=== PATIENT | male | born 1950 ===

== ENCOUNTER 2016-11-08 06:40 | Inpatient (IN) | payer MEDICARE ==
--- NOTE | 2016-11-08 07:25 | ED PDOC ---
Syncope/Near Syncope/Dizziness Time Seen by Provider: 11/08/16 07:00 Chief Complaint (Nursing): Dizziness/Lightheaded Chief Complaint (Provider): Dizziness/Lightheaded History Per: Patient, Family (Daughter) History/Exam Limitations: no limitations Onset/Duration Of Symptoms: Days (x1 day) Current Symptoms Are (Timing): Still Present Additional Complaint(s): 66 y/o male with a past medical history of hypertension, borderline diabetes, and hepatitis C who presents to the emergency department accompanied by and daughter after feeling lightheadedness since this morning, 11/08/2016. Associated with a headache onset a few days ago and dizziness described as room- spinning. Patient reports she "does not feel good" and felt like close to syncope after brushing his teeth and getting ready this morning. As per history from daughter, patient began taking Harvoni medications for hepatitis C about 6 months ago and is concerned it is causing his symptoms because he had been extremely tired for the past couple of weeks. Denies experiencing similar episode in the past, fever, abdominal pain, cough, or shortness of breath. PMD: Dr. Etienne (From [place] where patient lives) NIHSS Stroke Scale - Date/Time Evaluation Performed Date Performed: 11/08/16 When Was NIHSS Performed: Baseline - How Severe is the Stroke Level of Consciousness: 0=Alert LOC to Questions: 0=Both comments correct LOC to commands: 0=Obeys both correctly Best Gaze: 0=Normal Visual: 0=No visual loss Facial: 0=Normal Motor Arm - Left: 0=No drift Motor Arm - Right: 0=No drift Motor Leg - Left: 0=No drift Motor Leg - Right: 0=No drift Limb Ataxia: 0=Absent Sensory: 0=Normal Best Language: 0=No aphasia Dysarthia: 0=Normal articulation Extinction & Inattention (Neglect): 0=Normal, no object Score: 0 Past Medical History Reviewed: Historical Data, Nursing Documentation, Vital Signs Vital Signs: Last Vital Signs Temp 96 F L 11/08/16 06:44 Pulse 71 11/08/16 06:44 Resp 18 11/08/16 06:44 BP 182/95 H 11/08/16 06:44 Pulse Ox 98 11/08/16 06:44 - Medical History PMH: Diabetes (Borderline), Hepatitis (C), HTN, Hyperlipidemia - Surgical History Surgical History: CABG (Quadruple bypass), Hernia Repair - Family History Family History: States: Unknown Family Hx - Living Arrangements Living Arrangements: With Family - Social History Current smoker - smoking cessation education provided: No Alcohol: None Drugs: Denies - Home Medications Home Medications: Ambulatory Orders Medication Instructions Recorded Escitalopram [Lexapro] 10 mg PO DAILY 11/08/16 Gabapentin [Neurontin] 300 mg PO TID 11/08/16 Ledipasvir/Sofosbuvir [Harvoni 1 tab PO DAILY 11/08/16 90-400 mg Tablet] Losartan/Hydrochlorothiazide 1 tab PO DAILY 11/08/16 [Hyzaar 100-25 Tablet] Metoprolol Tartrate [Lopressor] 50 mg PO BID 11/08/16 Temazepam [Restoril] 30 mg PO HS 11/08/16 amLODIPine [Norvasc] 10 mg PO DAILY 11/08/16 traMADol [Ultram] 50 mg PO BID PRN 11/08/16 Aspirin [Aspirin Chewable] 81 mg PO DAILY 11/13/16 Atorvastatin [Lipitor] 20 mg PO DAILY tab 11/13/16 Clopidogrel [Plavix] 75 mg PO DAILY tab 11/13/16 Losartan [Cozaar] 50 mg PO DAILY tab 11/13/16 Meclizine [Meclizine*] 25 mg PO Q8@0200,1000,1800 tab 11/13/16 Metoprolol Tartrate [Lopressor] 12.5 mg PO Q12 tab 11/13/16 - Allergies Allergies/Adverse Reactions: Allergies Allergy/AdvReac Type Severity Reaction Status Date / Time No Known Allergies Allergy Verified 11/08/16 06:44 Review of Systems ROS Statement: Except As Marked, All Systems Reviewed And Found Negative Constitutional: Negative for: Fever Respiratory: Negative for: Cough, Shortness of Breath Gastrointestinal: Negative for: Abdominal Pain Neurological: Positive for: Headache, Dizziness (Room-spinning), Other ( Lightheadedness) Physical Exam - Reviewed Nursing Documentation Reviewed: Yes Vital Signs Reviewed: Yes - Physical Exam Appears: Positive for: Non-toxic, No Acute Distress Head Exam: Positive for: ATRAUMATIC, NORMAL INSPECTION, NORMOCEPHALIC Skin: Positive for: Normal Color, Warm, Dry Eye Exam: Positive for: Normal appearance, EOMI, PERRL ENT: Positive for: Normal ENT Inspection. Negative for: Pharyngeal Erythema Neck: Positive for: Normal, Supple Cardiovascular/Chest: Positive for: Regular Rate, Rhythm. Negative for: Murmur Respiratory: Positive for: Normal Breath Sounds. Negative for: Accessory Muscle Use, Respiratory Distress Gastrointestinal/Abdominal: Positive for: Soft, Tenderness (Diffuse tenderness of the abdomen) Extremity: Positive for: Normal ROM. Negative for: Pedal Edema Neurologic/Psych: Positive for: Alert, Oriented - Laboratory Results Result Diagrams: 11/13/16 04:10 11/13/16 04:10 - ECG ECG Rhythm: Positive for: Sinus Rhythm (Normal at 72 bpm), Left Bundle Branch Block O2 Sat by Pulse Oximetry: 98 (RA) Pulse Ox Interpretation: Normal Medical Decision Making Medical Decision Making: Time: 07:20 Initial impression: Lightheadedness/Dizziness Initial plan: --Abd & Pelvis w/o PO or IV contrast CT --Head w/o contrast --COMP Metabolic Panel --Troponin I Stat --CBC w/ differential --Chest Portable (RAD) --Antivert 25 mg PO --Ondansetron 4 mg IV --Blood Culture STAT --Urine Culture STAT --Urinalysis STAT --Blood Pressure: 193/97 --EKG: Normal Sinus Rhythm. Left bundle branch block at 72 bpm. --Reevaluation Time: 08:21 --Head CT FINDINGS: HEMORRHAGE: No intracranial hemorrhage. BRAIN: No mass effect or edema. Mild cerebral cortical atrophy VENTRICLES: Commensurate with the degree of atrophy and age No hydrocephalus. CALVARIUM: Unremarkable. PARANASAL SINUSES: . Unremarkable as visualized. No significant inflammatory changes. MASTOID AIR CELLS: Unremarkable as visualized. No inflammatory changes. OTHER FINDINGS: None. IMPRESSION: Mild cerebral atrophy. No intracranial hemorrhage or mass effect. Time: 08:24 --Chest x-ray FINDINGS: LUNGS: Pulmonary vascular minimal congestion -chronicity unknown. No dense consolidation PLEURA: Left inferolateral pleural thickening and/or pleural effusion. No pneumothorax apparent. CARDIOVASCULAR: Cardiomegaly and midline sternotomy wires OSSEOUS STRUCTURES: Thoracic spondylosis VISUALIZED UPPER ABDOMEN: Normal. OTHER FINDINGS: None. IMPRESSION: Cardiomegaly. Minimal pulmonary vascular congestion suspect -chronicity unknown. Status post midline sternotomy Left inferolateral pleural thickening with or without left pleural effusion - chronicity unknown Time: 09:00 --Repeat EKG --Troponin levels are normal. Time: 09:04 --Abdomen/Pelvis CT FINDINGS: LOWER THORAX: Coronary artery calcifications and sternotomy wires are noted. No pericardial effusion or pleural effusion seen LIVER: Unremarkable. No gross lesion or ductal dilatation. GALLBLADDER AND BILE DUCTS: Unremarkable. PANCREAS: Unremarkable. No gross lesion or ductal dilatation. 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 No mass. KIDNEYS AND URETERS: No hydronephrosis. A 1.4 cm right upper renal pole cortical hypodense mass with Hounsfield units consistent with a cyst is present. A similar with the tonsil unit that density any larger right lower renal pole 3.2 cm hypodense mass is suggested. The left kidney is ses slightly smaller VASCULATURE: Atherosclerotic vascular calcifications. No aortic aneurysm. BOWEL: A right colon is nearly come collapsed No obstruction. No gross mural thickening. APPENDIX: Unremarkable. Normal appendix. PERITONEUM: Unremarkable. No free fluid. No free air. LYMPH NODES: Unremarkable. No enlarged lymph nodes. BLADDER: Unremarkable. REPRODUCTIVE: Unremarkable. BONES: No acute fracture. OTHER FINDINGS: Anterior lower abdominal wall surgical changes are noted. At the mid abdomen nonspecific soft tissue changes in the anterior abdominal wall are present. No fluid collections or soft tissue mass is suggested. IMPRESSION: No bowel obstruction, diverticulitis or free air seen. Postop changes - splenectomy and low anterior abdominal wall. Right renal masses most consistent with renal cysts as above Time: 09:12 --Discussed results with daughter and . Order of antibiotics and potassium. --EKG: Normal sinus rhythm. Left Bundle Branch Block. Occasional PVCs at 66 bpm. Time: 09:30 --KCL 10MEQ/50ML Premixed --ZOSYN 4.5 GM IVPB --Pending call from Dr. Nye (Medicine cone trucker) Time: 10:37 --3rd call to Dr. Nye with no call back or answer. Time: 10:54 --Pending On-Call Dr. Damian Sanders who is covering for Dr. Nye. Time: 11:24 --Admit to hospital routine as inpatient to telemetry for presyncope, left bundle branch block, and hypokalemia under the care of Dr. Tommy Salgado. --Spoke to crane helper Dr. Lamberto Romero MD , he will consult for lbbb. Time: 12:50 --Pending for Neurologist on-call because patient continues to complain about a persistent headache. Time: 12:52 --Spoke to Neurology consult routine with Dr. Madhu Griffiths MD for persistent headaches who suggested the following: --CTA Head and Neck Bundle (CT) - results will be followed up by inpatient team as pt going up before the results are in. --Decadron INJ 10 mg --Magnesium Sulfate 2gm/100 mL --Reevaluation ordered all that and results will be followed up by Dr Salgado/Aye. pt agreeable to plan Scribe Attestation: Documented by Dorothea Jones, acting as a scribe for Bakari Núñez MD. Provider Scribe Attestation: All medical record entries made by the Scribe were at my direction and personally dictated by me. I have reviewed the chart and agree that the record accurately reflects my personal performance of the history, physical exam, medical decision making, and the department course for this patient. I have also personally directed, reviewed, and agree with the discharge instructions and disposition. Disposition - Clinical Impression Clinical Impression: Dizziness - Patient ED Disposition Is Patient to be Admitted: Yes Counseled Patient/Family Regarding: Studies Performed, Diagnosis - Disposition Disposition Time: 09:55 Condition: STABLE - Pt Status Changed To: Hospital Disposition Of: Inpatient - Admit Certification Admit to Inpatient:: After my assessment, the patient will require hospitalization for at least two midnights. This is because of the severity of symptoms shown, intensity of services needed, and/or the medical risk in this patient being treated as an outpatient.
[2016-11-08 08:08] LABS: BASO # 0.2 K/uL (0.0-0.2); BASO % 1.1 % (0.0-2.0); EOS # 0.4 K/uL (0.0-0.7); EOS % 2.5 % (0.0-4.0); HEMOGLOBIN 17.2 g/dL (12.0-18.0); LYMPH # 7.8 K/uL (1.0-4.3); LYMPH % 43.1 % (20.0-40.0); MEAN CELL VOLUME 90.7 fl (80.0-94.0); MEAN CORPUSCULAR HEMOGLOBIN 29.5 pg (27.0-31.0); MEAN CORPUSCULAR HGB CONC 32.6 g/dL (33.0-37.0); MEAN PLATELET VOLUME 9.4 fl (7.2-11.7); MONO # 1.7 K/uL (0.0-0.8); MONO % 9.4 % (0.0-10.0); NEUT % 43.9 % (50.0-75.0); NRBC % 0.2 % (0.0-0.0); RBC 5.81 Mil/uL (4.40-5.90); WHITE BLOOD COUNT 18.1 K/uL (4.8-10.8)
[2016-11-08 08:23] LABS: ALB/GLOB RATIO 1.1 (1.0-2.1); ALBUMIN 4.7 g/dL (3.5-5.0); ALT/SGPT 34 U/L (21-72); AST/SGOT 27 U/L (17-59); BLOOD UREA NITROGEN 31 mg/dl (9-20); CALCIUM 10.1 mg/dL (8.4-10.2); GFR AFRICAN-AMERICAN > 60; GFR NON-AFRICAN AMERICAN 55
--- NOTE | 2016-11-08 08:23 | CT ---
PROCEDURE: CT HEAD WITHOUT CONTRAST. HISTORY: dizziness COMPARISON: None available. TECHNIQUE: Axial computed tomography images were obtained through the head/brain without intravenous contrast. Radiation dose: Total exam DLP = 878 mGy-cm. This CT exam was performed using one or more of the following dose reduction techniques: Automated exposure control, adjustment of the mA and/or kV according to patient size, and/or use of iterative reconstruction technique. FINDINGS: HEMORRHAGE: No intracranial hemorrhage. BRAIN: No mass effect or edema. Mild cerebral cortical atrophy VENTRICLES: Commensurate with the degree of atrophy and age No hydrocephalus. CALVARIUM: Unremarkable. PARANASAL SINUSES: . Unremarkable as visualized. No significant inflammatory changes. MASTOID AIR CELLS: Unremarkable as visualized. No inflammatory changes. OTHER FINDINGS: None. IMPRESSION: Mild cerebral atrophy. No intracranial hemorrhage or mass effect.
--- NOTE | 2016-11-08 08:26 | RAD ---
HISTORY: dizziness COMPARISON: No prior. FINDINGS: LUNGS: Pulmonary vascular minimal congestion -chronicity unknown. No dense consolidation PLEURA: Left inferolateral pleural thickening and/or pleural effusion. No pneumothorax apparent. CARDIOVASCULAR: Cardiomegaly and midline sternotomy wires OSSEOUS STRUCTURES: Thoracic spondylosis VISUALIZED UPPER ABDOMEN: Normal. OTHER FINDINGS: None. IMPRESSION: Cardiomegaly. Minimal pulmonary vascular congestion suspect -chronicity unknown. Status post midline sternotomy Left inferolateral pleural thickening with or without left pleural effusion -chronicity unknown
[2016-11-08] MEDS ORDERED: Potassium Chloride 20 mEq ER Tab PO ONE (08:35)
--- NOTE | 2016-11-08 09:06 | CT ---
PROCEDURE: CT Abdomen and Pelvis without intravenous contrast HISTORY: abdominal pain COMPARISON: None. TECHNIQUE: Technique. Contrast Dose: Radiation dose: Total exam DLP = 1183 mGy-cm. This CT exam was performed using one or more of the following dose reduction techniques: Automated exposure control, adjustment of the mA and/or kV according to patient size, and/or use of iterative reconstruction technique. FINDINGS: LOWER THORAX: Coronary artery calcifications and sternotomy wires are noted. No pericardial effusion or pleural effusion seen LIVER: Unremarkable. No gross lesion or ductal dilatation. GALLBLADDER AND BILE DUCTS: Unremarkable. PANCREAS: Unremarkable. No gross lesion or ductal dilatation. 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 No mass. KIDNEYS AND URETERS: No hydronephrosis. A 1.4 cm right upper renal pole cortical hypodense mass with Hounsfield units consistent with a cyst is present. A similar with the tonsil unit that density any larger right lower renal pole 3.2 cm hypodense mass is suggested. The left kidney is ses slightly smaller VASCULATURE: Atherosclerotic vascular calcifications. No aortic aneurysm. BOWEL: A right colon is nearly come collapsed No obstruction. No gross mural thickening. APPENDIX: Unremarkable. Normal appendix. PERITONEUM: Unremarkable. No free fluid. No free air. LYMPH NODES: Unremarkable. No enlarged lymph nodes. BLADDER: Unremarkable. REPRODUCTIVE: Unremarkable. BONES: No acute fracture. OTHER FINDINGS: Anterior lower abdominal wall surgical changes are noted. At the mid abdomen nonspecific soft tissue changes in the anterior abdominal wall are present. No fluid collections or soft tissue mass is suggested. IMPRESSION: No bowel obstruction, diverticulitis or free air seen. Postop changes -splenectomy and low anterior abdominal wall. Right renal masses most consistent with renal cysts as above
[2016-11-08] MEDS ORDERED: Potassium CL 10 MEQ/50 ML 50 ML IVPB ONE (09:30)
[2016-11-08] MEDS ORDERED: Piperacillin/Tazobact 4.5 GM in Sodium Chloride 0.9% 100 ML IVPB STA (09:31)
[2016-11-08 11:56] LABS: URINE BILIRUBIN NEGATIVE (NEGATIVE); URINE BLOOD NEGATIVE (NEGATIVE); URINE CLARITY CLEAR (Clear); URINE COLOR STRAW (YELLOW); URINE GLUCOSE (UA) 50 mg/dL (Normal); URINE LEUKOCYTE ESTERASE NEG Leu/uL (Negative); URINE NITRATE NEGATIVE (NEGATIVE); URINE PROTEIN 30 mg/dL (NEGATIVE); URINE UROBILINOGEN 0.2-1.0 mg/dL (0.2-1.0)
[2016-11-08] MEDS ORDERED: Magnesium Sulfate 2 gm/50 ml 2 GM/50 ML BAG IVPB ONE (12:51)
[2016-11-08] MEDS ORDERED: Dexamethasone 10 MG in Sodium Chloride 0.9% 50 ML IV ONE (12:52)
[2016-11-08] MEDS ORDERED: Magnesium Sulfate 2 gm/50 ml 2 GM/50 ML BAG ONE (13:27)
[2016-11-08] MEDS ORDERED: Sodium Chloride 0.9% 50 ML IV ONE (13:45)
[2016-11-08] MEDS ORDERED: Iodixanol 320 MG/ML 100 ML BOTTLE IV ONE (13:46)
[2016-11-08] MEDS: Sodium Chloride 0.9% 1,000 ML IV SCH (15:35)
[2016-11-08] MEDS: Piperacillin/Tazobact 3.375 GM in Sodium Chloride 0.9% 100 ML IVPB SCH ×2 (16:30→21:14)
--- NOTE | 2016-11-08 17:03 | CT ---
PROCEDURE: CT Angiography of the Brain. HISTORY: headache dizziness COMPARISON: Comparison is made to the previous CT of the head without contrast dated 11/08/2016. TECHNIQUE: CT angiography of the neck and intracranial arteries was performed. Coronal and sagittal maximum intensity projection reformated images were generated. This CT exam was performed using one or more of the following dose reduction techniques: Automated exposure control, adjustment of the mA and/or kV according to patient size, and/or use of iterative reconstruction technique. DLP: 1918.88 FINDINGS: RIGHT CAROTID ARTERIES: Common Carotid Artery: No evidence of significant stenosis Carotid Bifurcation: Calcified plaques are seen at the bifurcation. Internal Carotid Artery:Mild less than 50 percent stenosis seen at the proximal right External Carotid Artery (proximal branches): [id number] stenosis seen at the origin of the right external. LEFT CAROTID ARTERIES: Common Carotid Artery: Normal. Carotid Bifurcation: Soft and calcified plaque seen Internal Carotid Artery:No evidence of significant stenosis External Carotid Artery (proximal branches): Tortuous. VERTEBRAL ARTERIES: Right Vertebral Artery: Occlusion of the right vertebral artery shortly after its origin. Left Vertebral Artery: The left vertebral artery is prominent in size. INTERNAL CEREBRAL ARTERIES: Unremarkable. The skull base, petrous, cavernous and supraclinoid segments are bilaterally widely patient. ANTERIOR CEREBRAL ARTERIES: Unremarkable. A1 and A2 segments are widely patent. Smaller distal branches unremarkable, as visualized. MIDDLE CEREBRAL ARTERIES: Occlusion of the left middle cerebral at its origin. POSTERIOR CIRCULATION: Basilar Artery: Unremarkable. Distal Vertebral Arteries: Reconstitution of the right vertebral artery distally. The distal right vertebral artery is smaller than the left. Posterior Cerebral Arteries: Unremarkable. Posterior Inferior Cerebellar Arteries: Unremarkable. ANEURYSM/ VASCULAR MALFORMATIONS: None. OTHER FINDINGS: 4 x 3.6 heterogeneous right thyroid nodule. Mildly enlarged lymph nodes in the neck. 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 Moderate atherosclerotic disease associated with calcified plaques at the carotid bifurcation in the neck. Less than 50 percent stenosis at the proximal right internal carotid artery. 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 Reconstitution of the distal right vertebral artery. 4 centimeter right thyroid heterogeneous lesion. Further assessment is recommended.
[2016-11-08] MEDS: Apap-Butalbital-Caffeine 325-50-40mg Tab PO PRN (21:11)
--- NOTE | 2016-11-08 21:19 | CP.PCM.CON ---
History of Present Illness - History of Present Illness History of Present Illness: 66 y/o male admitted with dizziness and near syncope. pt states that he feels dizzy when he changes position or stands from seated position. pt has a hx of cabg x 4, 7 years ago. at that time pt had cp. he denies cp currently. pt has a lbbb, he was told his ekg was abn in past. pt admits to n/v, no cp, sob, palp, arm pain, syncope. dizziness is described as spinning and feeling off balance. never had these sx before pt has a hx of htn and on arrival his bp was elevated. he denies facial pain, ear pain, tinnitus, congestion. Review of Systems - Constitutional Constitutional: absent: As Per HPI, Anorexia, Chills, Daytime Sleepiness, Excessive Sweating, Fatigue, Fever, Frequent Falls, Headache, Increased Appetite , Lethargy, Malaise, Night Sweats, Snoring, Sleep Apnea, Weight Gain, Weight Loss, Weakness, Other - EENT Eyes: absent: As Per HPI, Blind Spots, Blurred Vision, Change in Vision, Decreased Night Vision, Diplopia, Discharge, Dry Eye, Exophthalmos, Floaters, Irritation, Itchy Eyes, Loss of Peripheral Vision, Pain, Photophobia, Requires Corrective Lenses, Sees Flashes, Spots in Vision, Tunnel Vision, Other Visual Disturbances, Loss of Vision, Other Ears: absent: As Per HPI, Decreased Hearing, Ear Discharge, Ear Pain, Tinnitus, Abnormal Hearing, Disequilibrium, Dizziness, Other Nose/Mouth/Throat: absent: As Per HPI, Epistaxis, Nasal Congestion, Nasal Discharge, Nasal Obstruction, Nasal Trauma, Nose Pain, Post Nasal Drip, Sinus Pain, Sinus Pressure, Bleeding Gums, Change in Voice, Dental Pain, Dry Mouth, Dysphagia, Halitosis, Hoarsness, Lip Swelling, Mouth Lesions, Mouth Pain, Odynophagia, Sore Throat, Throat Swelling, Tongue Swelling, Facial Pain, Neck Pain, Neck Mass, Other - Cardiovascular Cardiovascular: Lightheadedness. absent: As Per HPI, Acrocyanosis, Chest Pain, Chest Pain at Rest, Chest Pain with Activity, Claudication, Diaphoresis, Dyspnea , Dyspnea on Exertion, Edema, Irregular Heart Rhythm, Pain Radiating to Arm/Neck /Jaw, Leg Edema, Leg Ulcers, Orthopnea, Palpitations, Paroxysmal Nocturnal Dyspnea, Pedal Edema, Radiating Pain, Rapid Heart Rate, Slow Heart Rate, Syncope , Other - Respiratory Respiratory: absent: As Per HPI, Cough, Dyspnea, Hemoptysis, Dyspnea on Exertion , Wheezing, Snoring, Stridor, Pain on Inspiration, Chest Congestion, Excessive Mucous Production, Change in Mucous Color, Pain with Coughing, Other - Gastrointestinal Gastrointestinal: absent: As Per HPI, Abdominal Pain, Belching, Bloating, Change in Bowel Habits, Change in Stool Character, Coffee Ground Emesis, Constipation, Cramping, Diarrhea, Dyspepsia, Dysphagia, Early Satiety, Excessive Flatus, Fecal Incontinence, Heartburn, Hematemesis, Hematochezia, Loose Stools, Melena, Nausea, Odynophagia, Temesmus, Vomiting, Other - Genitourinary Genitourinary: absent: As Per HPI, Change in Urinary Stream, Difficulty Urinating, Dysuria, Flank Pain, Hematuria, Pyuria, Nocturia, Urinary Incontinence, Urinary Frequency, Urinary Hesitance, Urinary Urgency, Voiding Freq/Small Amts, Freq UTI, Hx Renal/Bladder Calculi, Hx /Renal Surgery, Bladder Distension, Other - Musculoskeletal Musculoskeletal: absent: As Per HPI, Abnormal Gait, Arthralgias, Atrophy, Back Pain, Deformity, Joint Swelling, Limited Range of Motion, Loss of Height, Muscle Cramps, Muscle Weakness, Myalgias, Neck Pain, Numbness, Radiating Pain into Limb, Stiffness, Tingling, Other - Integumentary Integumentary: absent: As Per HPI, Acne, Alopecia, Bleeding Lesions, Change in Hair, Change in Nails, Change in Pigmentation, Changing Lesions, Dry Skin, Erythema, Furuncle, Hirsutism, Lesions, New Lesions, Non-Healing Lesions, Photosensitivity, Pruritus, Rash, Skin Pain, Skin Ulcer, Sores, Striae, Swelling , Unusual Bruising, Wounds, Jaundice, Other - Neurological Neurological: Abnormal Gait, Vertigo. absent: As Per HPI, Abnormal Hearing, Abnormal Movements, Abnormal Speech, Behavioral Changes, Burning Sensations, Confusion, Convulsions, Disequilibrium, Dizziness, Numbness, Focal Weakness, Frequent Falls, Headaches, Lack of Coordination, Loss of Vision, Memory Loss, Paresthesias, Radicular Pain, Restless Legs, Sensory Deficit, Syncope, Tingling , Tremor, Weakness, Other Visual Disturbances, Other - Psychiatric Psychiatric: absent: As Per HPI, Abnormal Sleep Pattern, Anhedonia, Anxiety, Auditory Hallucinations, Behavioral Changes, Change in Appetite, Change in Libido, Confusion, Depression, Difficulty Concentrating, Hallucinations, Homicidal Ideation, Hopelessness, Irritability, Memory Loss, Mood Swings, Panic Attacks, Paranoia, Suicidal Ideation, Visual Hallucinations, Tactile Hallucinations, Other - Endocrine Endocrine: absent: As Per HPI, Change in Body Appearance, Change in Libido, Cold Intolorance, Deepening of Voice, Excessive Sweating, Fatigue, Flushing, Heat Intolorance, Increase in Ring/Shoe/Hat Size, Palpitations, Polydipsia, Polyphagia, Polyuria, Other - Hematologic/Lymphatic Hematologic: absent: As Per HPI, Easy Bleeding, Easy Bruising, Lymphadenopathy, Other Past Patient History - Past Medical History & Family History Past Medical History?: Yes - Past Social History Smoking Status: Never Smoked Alcohol: None Drugs: Denies Domestic Violence: Negative - CARDIAC Hx Cardiac Disorders: Yes Hx Hypertension: Yes Other/Comment: cabg x 4 - PULMONARY Hx Respiratory Disorders: No - NEUROLOGICAL Hx Neurological Disorder: No - HEENT Hx HEENT Problems: No - RENAL Hx Chronic Kidney Disease: No - ENDOCRINE/METABOLIC Hx Endocrine Disorders: Yes Other/Comment: borderline DM - HEMATOLOGICAL/ONCOLOGICAL Hx Blood Disorders: Yes Hx Hepatitis C: Yes - INTEGUMENTARY Hx Dermatological Problems: No - MUSCULOSKELETAL/RHEUMATOLOGICAL Hx Musculoskeletal Disorders: No Hx Falls: No - GASTROINTESTINAL Hx Gastrointestinal Disorders: No - GENITOURINARY/GYNECOLOGICAL Hx Genitourinary Disorders: No - PSYCHIATRIC Hx Psychophysiologic Disorder: No Hx Substance Use: No - SURGICAL HISTORY Hx Surgeries: Yes Hx Coronary Artery Bypass Graft: Yes (Quadruple bypass) Hx Herniorrhaphy: Yes Hx Splenectomy: Yes - ANESTHESIA Hx Anesthesia: Yes Hx Anesthesia Reactions: No Hx Malignant Hyperthermia: No Meds Allergies/Adverse Reactions: Allergies Allergy/AdvReac Type Severity Reaction Status Date / Time No Known Allergies Allergy Verified 11/08/16 06:44 - Medications Medications: Current Medications Acetaminophen (Tylenol 325mg Tab) 650 mg PO Q6 PRN PRN Reason: Headache Last Admin: 11/08/16 16:33 Dose: 650 mg Acetaminophen/Butalbital/Caffeine (Fioricet) 1 tab PO Q4 PRN PRN Reason: Pain, moderate (4-7) Last Admin: 11/08/16 21:11 Dose: 1 tab Amlodipine Besylate (Norvasc) 10 mg PO DAILY COUNTS [facility]CLUDE 234 BEDS AT THE [facility] Last Admin: 11/08/16 16:30 Dose: 10 mg Enoxaparin Sodium (Lovenox) 40 mg SC DAILY COUNTS INCLUDE 234 BEDS AT THE [facility] PRN Reason: Protocol Escitalopram Oxalate (Lexapro) 10 mg PO DAILY COUNTS INCLUDE 234 BEDS AT THE [facility] Gabapentin (Neurontin) 300 mg PO TID COUNTS INCLUDE 234 BEDS AT THE [facility] Last Admin: 11/08/16 16:30 Dose: 300 mg Sodium Chloride (Sodium Chloride 0.9%) 1,000 mls @ 100 mls/hr IV .Q10H COUNTS INCLUDE 234 BEDS AT THE [facility] Stop: 11/09/16 15:10 Last Admin: 11/08/16 15:35 Dose: 100 mls/hr Piperacillin Sod/Tazobactam (Sod 3.375 gm/ Sodium Chloride) 100 mls @ 100 mls/ hr IVPB Q6 COUNTS INCLUDE 234 BEDS AT THE [facility] Last Admin: 11/08/16 21:14 Dose: 100 mls/hr Meclizine HCl (Antivert) 25 mg PO Q8H PRN PRN Reason: Dizziness Last Admin: 11/08/16 18:03 Dose: 25 mg Metoprolol Tartrate (Lopressor) 50 mg PO BID COUNTS INCLUDE 234 BEDS AT THE [facility] Last Admin: 11/08/16 16:31 Dose: 50 mg Temazepam (Restoril) 30 mg PO HS COUNTS INCLUDE 234 BEDS AT THE [facility] Last Admin: 11/08/16 21:06 Dose: 30 mg Tramadol HCl (Ultram) 50 mg PO BID PRN PRN Reason: Pain, severe (8-10) Last Admin: 11/08/16 15:35 Dose: 50 mg Physical Exam - Constitutional Appears: In Acute Distress - Head Exam Head Exam: ATRAUMATIC, NORMAL INSPECTION, NORMOCEPHALIC Additional comments: positive nystagmus with turning of head. positive vertigo as well. - Eye Exam Eye Exam: EOMI, Normal appearance, PERRL Pupil Exam: NORMAL ACCOMODATION, PERRL - ENT Exam ENT Exam: Mucous Membranes Moist, Normal Exam - Neck Exam Neck exam: Positive for: Normal Inspection - Respiratory Exam Respiratory Exam: Clear to Auscultation Bilateral, NORMAL BREATHING PATTERN - Cardiovascular Exam Cardiovascular Exam: REGULAR RHYTHM, +S1, +S2, Systolic Murmur - GI/Abdominal Exam GI & Abdominal Exam: Normal Bowel Sounds, Soft. absent: Tenderness - Rectal Exam Rectal Exam: Deferred - Extremities Exam Extremities exam: Positive for: normal inspection - Back Exam Back exam: NORMAL INSPECTION - Neurological Exam Neurological exam: Oriented x3 - Psychiatric Exam Psychiatric exam: Normal Affect, Normal Mood - Skin Skin Exam: Dry, Intact, Normal Color, Warm Results - Vital Signs Recent Vital Signs: Last Vital Signs Temp 97.6 F 11/08/16 19:15 Pulse 80 11/08/16 19:15 Resp 20 11/08/16 19:15 BP 150/79 11/08/16 19:15 Pulse Ox 96 11/08/16 19:15 - Labs Result Diagrams: 11/08/16 08:04 11/08/16 08:04 Labs: Laboratory Results - last 24 hr 11/08/16 11:42 Urine Color Straw Urine Clarity Clear Urine pH 6.0 Ur Specific [place] 1.012 Urine Protein 30 Urine Glucose (UA) 50 Urine Ketones Negative Urine Blood Negative Urine Nitrate Negative Urine Bilirubin Negative Urine Urobilinogen 0.2-1.0 Ur Leukocyte Esterase Neg Urine RBC (Auto) < 1 Urine Microscopic WBC < 1 - EKG Data EKG Interpreted by: Myself EKG shows normal: Sinus rhythm, QRS complexes - EKG Data EKG comments: lbbb Assessment & Plan (1) Vertigo Status: Acute (2) S/P CABG x 4 Status: Acute (3) CAD (coronary artery disease) Status: Acute (4) LBBB (left bundle branch block) Status: Acute (5) Pre-syncope Status: Acute (6) HTN (hypertension) Status: Acute - Assessment and Plan (Free Text) Plan: - antivert - echo - ivf - will not tolerate st at this point - cont tele - trop - monitor labs - 65 min total care time.
[2016-11-09] MEDS: Sodium Chloride 0.9% 1,000 ML IV SCH ×2 (02:03→14:51)
[2016-11-09] MEDS: Apap-Butalbital-Caffeine 325-50-40mg Tab PO PRN ×2 (02:04→12:02)
[2016-11-09] MEDS: Piperacillin/Tazobact 3.375 GM in Sodium Chloride 0.9% 100 ML IVPB SCH ×4 (04:15→22:44)
[2016-11-09 07:16] LABS: HEMOGLOBIN 15.8 g/dL (12.0-18.0); MEAN CELL VOLUME 89.5 fl (80.0-94.0); MEAN CORPUSCULAR HEMOGLOBIN 29.7 pg (27.0-31.0); MEAN CORPUSCULAR HGB CONC 33.2 g/dL (33.0-37.0); RBC 5.33 Mil/uL (4.40-5.90); RED CELL DISTRIBUTION WIDTH 14.9 % (11.5-14.5); WHITE BLOOD COUNT 19.7 K/uL (4.8-10.8)
[2016-11-09 07:30] LABS: BLOOD UREA NITROGEN 27 mg/dl (9-20); CALCIUM 9.2 mg/dL (8.4-10.2); GFR AFRICAN-AMERICAN > 60; GFR NON-AFRICAN AMERICAN > 60; MAGNESIUM 1.9 MG/DL (1.6-2.3)
[2016-11-09 07:38] LABS: T4 6.62 ug/dl (5.5-11.0)
[2016-11-09 07:52] LABS: T3 0.832 nmol/L (1.49-2.60)
[2016-11-09] MEDS: Enoxaparin 40 mg Syringe SC SCH (09:31)
--- NOTE | 2016-11-09 12:03 | CP.PCM.HP ---
<Nieves Ruiz - Last Filed: 11/10/16 14:08> History of Present Illness - History of Present Illness History of Present Illness: Patient seen and examined at bedside with attending. 66M p/w near syncope yesterday with associated double vision, frontal headache, and vertigo that had began a few days prior. Daughter reports that her father has been fatigued and just "not as active" and she feels it has started since initiating Hep C treatment. Patient denies loss of consciousness, recent head trauma, or similar episodes in the past. Patient is currently visiting daughter from [place]. PMD: In [place] PMH: Hep C, HTN, CAD, PSH: CABG x4, Splenectomy, Hernia Repair Smoke: Quit 40 yrs ago ALL: NKDA LA: See Med Rec Present on Admission - Present on Admission Any Indicators Present on Admission: No Review of Systems - Review of Systems All systems: reviewed and no additional remarkable complaints except - Constitutional Constitutional: Fatigue, Malaise - Cardiovascular Cardiovascular: Palpitations (At times) - Neurological Neurological: Dizziness, Headaches, Vertigo. absent: Focal Weakness Past Patient History - Past Medical History & Family History Past Medical History?: Yes - Past Social History Smoking Status: Never Smoked Alcohol: None Drugs: Denies Domestic Violence: Negative - CARDIAC Hx Cardiac Disorders: Yes Hx Hypertension: Yes Other/Comment: cabg x 4 - PULMONARY Hx Respiratory Disorders: No - NEUROLOGICAL Hx Neurological Disorder: No - HEENT Hx HEENT Problems: No - RENAL Hx Chronic Kidney Disease: No - ENDOCRINE/METABOLIC Hx Endocrine Disorders: Yes Other/Comment: borderline DM - HEMATOLOGICAL/ONCOLOGICAL Hx Blood Disorders: Yes Hx Hepatitis C: Yes - INTEGUMENTARY Hx Dermatological Problems: No - MUSCULOSKELETAL/RHEUMATOLOGICAL Hx Musculoskeletal Disorders: No Hx Falls: No - GASTROINTESTINAL Hx Gastrointestinal Disorders: No - GENITOURINARY/GYNECOLOGICAL Hx Genitourinary Disorders: No - PSYCHIATRIC Hx Psychophysiologic Disorder: No Hx Substance Use: No - SURGICAL HISTORY Hx Surgeries: Yes Hx Coronary Artery Bypass Graft: Yes (Quadruple bypass) Hx Herniorrhaphy: Yes Hx Splenectomy: Yes - ANESTHESIA Hx Anesthesia: Yes Hx Anesthesia Reactions: No Hx Malignant Hyperthermia: No Meds Allergies/Adverse Reactions: Allergies Allergy/AdvReac Type Severity Reaction Status Date / Time No Known Allergies Allergy Verified 11/08/16 06:44 Physical Exam - Constitutional Appears: Well, Non-toxic, No Acute Distress - Head Exam Head Exam: ATRAUMATIC, NORMAL INSPECTION - Eye Exam Eye Exam: EOMI, PERRL. absent: Nystagmus - ENT Exam ENT Exam: Mucous Membranes Moist, Normal Exam - Neck Exam Neck exam: Positive for: Normal Inspection. Negative for: Lymphadenopathy - Respiratory Exam Respiratory Exam: Clear to Auscultation Bilateral, NORMAL BREATHING PATTERN. absent: Rales, Wheezes - Cardiovascular Exam Cardiovascular Exam: REGULAR RHYTHM. absent: JVD - GI/Abdominal Exam GI & Abdominal Exam: Normal Bowel Sounds, Soft. absent: Tenderness - Extremities Exam Extremities exam: Positive for: normal capillary refill, pedal pulses present. Negative for: pedal edema - Neurological Exam Neurological exam: Alert, Oriented x3 - Psychiatric Exam Psychiatric exam: Normal Affect, Normal Mood - Skin Skin Exam: Normal Color, Warm Results - Vital Signs Recent Vital Signs: Last Vital Signs Temp 36.6 C 11/09/16 08:00 Pulse 64 11/09/16 09:32 Resp 18 11/09/16 08:00 BP 151/77 H 11/09/16 09:32 Pulse Ox 93 L 11/09/16 08:00 - Labs Result Diagrams: 11/09/16 05:45 11/09/16 05:45 Labs: Laboratory Results - last 24 hr 11/09/16 11/09/16 05:45 05:45 WBC 19.7 H RBC 5.33 Hgb 15.8 Hct 47.7 MCV 89.5 MCH 29.7 MCHC 33.2 RDW 14.9 H Plt Count 335 ESR 8 Sodium 144 Potassium 3.7 Chloride 107 Carbon Dioxide 23 Anion Gap 17 BUN 27 H Creatinine 1.2 Est GFR ( Amer) > 60 Est GFR (Non-Af Amer) > 60 Random Glucose 137 H Calcium 9.2 Magnesium 1.9 Troponin I 0.0180 Thyroxine (T4) 6.62 Total T3 0.832 L TSH 3rd Generation 0.57 Assessment & Plan (2) Leukocytosis, unspecified Assessment and Plan: Suspect secondary to steroids administered in the ED as clinically no signs of infection, AVSS, and CXR- no acute disease. Status: Acute (3) DVT prophylaxis Assessment and Plan: Lovenox 40mg, SC, Daily Status: Acute (4) H/O four vessel coronary artery bypass graft Assessment and Plan: Chronic stable, will c/w beta vanda. Status: Chronic (5) CAD (coronary artery disease) Assessment and Plan: Stable, c/w aspirin, beta vanda Status: Chronic (6) HTN (hypertension) Assessment and Plan: Allow permissive HTN at this time as per Neuro. Status: Chronic (7) Hepatitis C Assessment and Plan: Needs to continue with home regimen. 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 Orthostatics negative, awaiting echo results. - Neurology Consult (Dr Griffiths): MRI Brain w/o contrast, NISHA if TTE is negative to r/o atrial appendage thrombus, Permissive HTN, Load 300mg Plavix - Cardiology Consult (Dr Romero): EKG, Echocardiography, - Vascular Surgery Consult (Dr Valdez): No surgical intervention at this time, recommend DAP and neuro-interventional radiology evaluation - Plavix 300mg, PO, x1 loading - Started Aspirin 81mg, PO, Daily - Started Plavix 75mg, PO, Daily - MRI Brain, MRA Head/Neck - NS @ 100cc/hr - Neurochecks Q2H - Awaiting TTE results - BP medication held at this time EXCEPT beta vanda - Meclizine 25mg, PO, Q8H Status: Acute <Salgado,Tommy K - Last Filed: 11/24/16 15:36> Results - Vital Signs Recent Vital Signs: Last Vital Signs Temp 97.2 F L 11/13/16 08:04 Pulse 62 11/13/16 11:04 Resp 18 11/13/16 08:04 BP 183/103 H 11/13/16 11:04 Pulse Ox 98 11/15/16 05:57 - Labs Result Diagrams: 11/13/16 04:10 11/13/16 04:10 Assessment & Plan - Assessment and Plan (Free Text) Assessment: Patient was personally seen and examined by me in rounds with residents. Available labs and diagnostic data reviewed. Case, patient's condition and management plan discussed with residents in rounds. Agree with resident's progress note. Plan: As ordered.
--- NOTE | 2016-11-09 13:12 | CP.PCM.PN ---
Subjective - Date & Time of Evaluation Date of Evaluation: 11/09/16 Time of Evaluation: 13:10 - Subjective Subjective: remains dizzy, mainly when standing up. bp remains elevated. mri noted. occlusions appear chronic and not cw current presentation. pt aware. Objective - Vital Signs/Intake and Output Vital Signs (last 24 hours): Temp Pulse Resp BP Pulse Ox 97.7 F 57 L 18 134/69 95 11/09/16 12:36 11/09/16 12:36 11/09/16 12:36 11/09/16 12:36 11/09/16 12:36 Intake and Output: 11/09/16 11/09/16 06:59 18:59 Intake Total 1100 Balance 1100 - Medications Medications: Current Medications Acetaminophen (Tylenol 325mg Tab) 650 mg PO Q6 PRN PRN Reason: Headache Last Admin: 11/08/16 16:33 Dose: 650 mg Acetaminophen/Butalbital/Caffeine (Fioricet) 1 tab PO Q4 PRN PRN Reason: Pain, moderate (4-7) Last Admin: 11/09/16 12:02 Dose: 1 tab Amlodipine Besylate (Norvasc) 5 mg PO Q12 [facility] Aspirin (Aspirin Chewable) 81 mg PO DAILY [facility] Clopidogrel Bisulfate (Plavix) 75 mg PO DAILY [facility] Enoxaparin Sodium (Lovenox) 40 mg SC DAILY [facility] PRN Reason: Protocol Last Admin: 11/09/16 09:31 Dose: 40 mg Escitalopram Oxalate (Lexapro) 10 mg PO DAILY [facility] Last Admin: 11/09/16 09:31 Dose: 10 mg Gabapentin (Neurontin) 300 mg PO TID [facility] Last Admin: 11/09/16 09:32 Dose: 300 mg Sodium Chloride (Sodium Chloride 0.9%) 1,000 mls @ 100 mls/hr IV .Q10H [facility] Stop: 11/09/16 15:10 Last Admin: 11/09/16 02:03 Dose: 100 mls/hr Piperacillin Sod/Tazobactam (Sod 3.375 gm/ Sodium Chloride) 100 mls @ 100 mls/ hr IVPB Q6 [facility] Last Admin: 11/09/16 04:15 Dose: 100 mls/hr Losartan Potassium (Cozaar) 50 mg PO DAILY [facility] Meclizine HCl (Antivert) 25 mg PO Q8@0200,1000,1800 [facility] Last Admin: 11/09/16 09:30 Dose: 25 mg Metoprolol Tartrate (Lopressor) 50 mg PO BID [facility] Last Admin: 11/09/16 09:31 Dose: 50 mg Temazepam (Restoril) 30 mg PO HS [facility] Last Admin: 11/08/16 21:06 Dose: 30 mg Tramadol HCl (Ultram) 50 mg PO BID PRN PRN Reason: Pain, severe (8-10) Last Admin: 11/08/16 15:35 Dose: 50 mg - Labs Labs: 11/09/16 05:45 11/09/16 05:45 Assessment and Plan (1) Vertigo Status: Acute (2) S/P CABG x 4 Status: Acute (3) CAD (coronary artery disease) Status: Acute (4) LBBB (left bundle branch block) Status: Acute (5) Pre-syncope Status: Acute (6) HTN (hypertension) Status: Acute - Assessment and Plan (Free Text) Plan: - add asa, plavix - control bp - will change to norvasc 5mg bid and add losartan. - statin therapy. - await echo - repleat lytes - no stress test until acute vertigo resolved. he may have as out patient.
--- NOTE | 2016-11-09 14:15 | CP.PCM.CON ---
History of Present Illness - History of Present Illness History of Present Illness: 66 year-old male with multiple co-morbidities, known history of peripheral arterial disease as well as significant risk factors for PAD including poorly controlled hypertension, borderline diabetes and hyperlipidemia. Patient presented to the emergency department yesterday complaining of near syncopal episode earlier that day in the setting of lightheadedness, fatique and generalized malaise. Associated symptoms included double vision, severe frontal headache with onset several days ago and vertigo. Patient denies loss of consciousness, recent head trauma or similar episodes in the past. He admits to fatigue, malaise and sleepiness for some time now. Patient denies taking new medications recently except for Harvoni for hepatitis C which was started 6 months ago. Patient denies fever, chills,abdominal pain, or pulmonary symptoms. Overall, he has been feeling better since the time of his hospitalization with apparent resolution of his headache and improvement in the severity of vertigo. Review of Systems - Constitutional Constitutional: As Per HPI, Fatigue, Headache, Malaise - EENT Eyes: Change in Vision, Diplopia Ears: Tinnitus, Dizziness Nose/Mouth/Throat: absent: Facial Pain, Neck Pain - Cardiovascular Cardiovascular: Lightheadedness, Syncope. absent: Chest Pain, Claudication, Diaphoresis, Dyspnea, Edema, Leg Edema, Pedal Edema Additional comments: near syncope - Respiratory Respiratory: absent: As Per HPI, Cough, Dyspnea, Hemoptysis, Dyspnea on Exertion , Wheezing, Snoring, Stridor, Pain on Inspiration, Chest Congestion, Excessive Mucous Production, Change in Mucous Color, Pain with Coughing, Other - Gastrointestinal Gastrointestinal: absent: Abdominal Pain, Constipation, Cramping, Diarrhea, Melena, Nausea - Genitourinary Genitourinary: absent: Change in Urinary Stream, Difficulty Urinating, Dysuria, Flank Pain, Hematuria, Pyuria, Nocturia, Urinary Frequency - Musculoskeletal Musculoskeletal: absent: Arthralgias, Atrophy, Joint Swelling, Muscle Cramps, Muscle Weakness, Myalgias - Integumentary Integumentary: absent: Rash, Unusual Bruising, Wounds - Neurological Neurological: Dizziness, Headaches, Vertigo. absent: Abnormal Gait, Abnormal Movements, Abnormal Speech, Behavioral Changes, Confusion, Convulsions, Numbness , Focal Weakness, Lack of Coordination, Sensory Deficit, Weakness - Endocrine Endocrine: absent: As Per HPI, Change in Body Appearance, Change in Libido, Cold Intolorance, Deepening of Voice, Excessive Sweating, Fatigue, Flushing, Heat Intolorance, Increase in Ring/Shoe/Hat Size, Palpitations, Polydipsia, Polyphagia, Polyuria, Other - Hematologic/Lymphatic Hematologic: absent: Easy Bleeding, Easy Bruising Past Patient History - Past Medical History & Family History Past Medical History?: Yes - Past Social History Smoking Status: Never Smoked Alcohol: None Drugs: Denies Domestic Violence: Negative - CARDIAC Hx Cardiac Disorders: Yes (CABG operation) Hx Hypertension: Yes Other/Comment: cabg x 4 - PULMONARY Hx Respiratory Disorders: No - NEUROLOGICAL Hx Neurological Disorder: No - HEENT Hx HEENT Problems: No - RENAL Hx Chronic Kidney Disease: No - ENDOCRINE/METABOLIC Hx Endocrine Disorders: Yes Other/Comment: borderline DM - HEMATOLOGICAL/ONCOLOGICAL Hx Blood Disorders: Yes Hx Hepatitis C: Yes - INTEGUMENTARY Hx Dermatological Problems: No - MUSCULOSKELETAL/RHEUMATOLOGICAL Hx Musculoskeletal Disorders: No Hx Falls: No - GASTROINTESTINAL Hx Gastrointestinal Disorders: No - GENITOURINARY/GYNECOLOGICAL Hx Genitourinary Disorders: No - PSYCHIATRIC Hx Psychophysiologic Disorder: No Hx Substance Use: No - SURGICAL HISTORY Hx Surgeries: Yes Hx Coronary Artery Bypass Graft: Yes (Quadruple bypass) Hx Herniorrhaphy: Yes Hx Splenectomy: Yes - ANESTHESIA Hx Anesthesia: Yes Hx Anesthesia Reactions: No Hx Malignant Hyperthermia: No Meds Allergies/Adverse Reactions: Allergies Allergy/AdvReac Type Severity Reaction Status Date / Time No Known Allergies Allergy Verified 11/08/16 06:44 - Medications Medications: Current Medications Acetaminophen (Tylenol 325mg Tab) 650 mg PO Q6 PRN PRN Reason: Headache Last Admin: 11/08/16 16:33 Dose: 650 mg Acetaminophen/Butalbital/Caffeine (Fioricet) 1 tab PO Q4 PRN PRN Reason: Pain, moderate (4-7) Last Admin: 11/09/16 12:02 Dose: 1 tab Amlodipine Besylate (Norvasc) 10 mg PO DAILY [facility] Last Admin: 11/09/16 09:32 Dose: 10 mg Enoxaparin Sodium (Lovenox) 40 mg SC DAILY [facility] PRN Reason: Protocol Last Admin: 11/09/16 09:31 Dose: 40 mg Escitalopram Oxalate (Lexapro) 10 mg PO DAILY [facility] Last Admin: 11/09/16 09:31 Dose: 10 mg Gabapentin (Neurontin) 300 mg PO TID [facility] Last Admin: 11/09/16 09:32 Dose: 300 mg Sodium Chloride (Sodium Chloride 0.9%) 1,000 mls @ 100 mls/hr IV .Q10H [facility] Stop: 11/09/16 15:10 Last Admin: 11/09/16 02:03 Dose: 100 mls/hr Piperacillin Sod/Tazobactam (Sod 3.375 gm/ Sodium Chloride) 100 mls @ 100 mls/ hr IVPB Q6 [facility] Last Admin: 11/09/16 04:15 Dose: 100 mls/hr Meclizine HCl (Antivert) 25 mg PO Q8@0200,1000,1800 [facility] Last Admin: 11/09/16 09:30 Dose: 25 mg Metoprolol Tartrate (Lopressor) 50 mg PO BID [facility] Last Admin: 11/09/16 09:31 Dose: 50 mg Temazepam (Restoril) 30 mg PO HS [facility] Last Admin: 11/08/16 21:06 Dose: 30 mg Tramadol HCl (Ultram) 50 mg PO BID PRN PRN Reason: Pain, severe (8-10) Last Admin: 11/08/16 15:35 Dose: 50 mg Physical Exam - Constitutional Appears: Non-toxic, No Acute Distress - Head Exam Head Exam: NORMAL INSPECTION, NORMOCEPHALIC - Eye Exam Eye Exam: EOMI, Normal appearance Pupil Exam: PERRL - ENT Exam ENT Exam: Mucous Membranes Moist, Normal Exam - Neck Exam Neck exam: Positive for: Normal Inspection. Negative for: Lymphadenopathy, Tenderness - Respiratory Exam Respiratory Exam: Clear to Auscultation Bilateral, NORMAL BREATHING PATTERN - Cardiovascular Exam Cardiovascular Exam: REGULAR RHYTHM, RRR. absent: JVD - GI/Abdominal Exam GI & Abdominal Exam: Normal Bowel Sounds, Soft. absent: Organomegaly, Rebound, Tenderness - Extremities Exam Extremities exam: Positive for: full ROM, normal capillary refill, normal inspection, pedal pulses present. Negative for: pedal edema, tenderness - Back Exam Back exam: NORMAL INSPECTION - Neurological Exam Neurological exam: CN II-XII Intact, Oriented x3, Reflexes Normal - Psychiatric Exam Psychiatric exam: Normal Affect, Normal Mood - Skin Skin Exam: Normal Color, Warm Results - Vital Signs Recent Vital Signs: Last Vital Signs Temp 97.7 F 11/09/16 12:36 Pulse 57 L 11/09/16 12:36 Resp 18 11/09/16 12:36 BP 134/69 11/09/16 12:36 Pulse Ox 95 11/09/16 12:36 - Labs Result Diagrams: 11/09/16 05:45 11/09/16 05:45 Labs: Laboratory Results - last 24 hr 11/08/16 11/09/16 11/09/16 19:23 05:45 05:45 WBC 19.7 H RBC 5.33 Hgb 15.8 Hct 47.7 MCV 89.5 MCH 29.7 MCHC 33.2 RDW 14.9 H Plt Count 335 ESR 8 Sodium 144 Potassium 3.7 Chloride 107 Carbon Dioxide 23 Anion Gap 17 BUN 27 H Creatinine 1.2 Est GFR ( Amer) > 60 Est GFR (Non-Af Amer) > 60 Random Glucose 137 H Hemoglobin A1c 6.0 Calcium 9.2 Magnesium 1.9 Troponin I 0.0180 Thyroxine (T4) 6.62 Total T3 0.832 L TSH 3rd Generation 0.57 Assessment & Plan - Assessment and Plan (Free Text) Assessment: 66 year-old male with known history and significant risk factors for PAD presents with abovementioned neurological symptoms and complaints. Patient has no radiological evidence of cerebro-vascular accident. He has no obvious motor- sensory, gross neurological or cognitive deficits. His overall condition has improved while in the hospital even though vertigo still persists. 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 While the former is likely chronic and does not appear symptomatic at present, the latter might be acute or [id number] and possibly related to patient's symptoms. Evaluation and treatment of intracranial vascular lesions such as left MCA occlusion does not fall within the realm of vascular surgery and usually is evaluated by interventional neuroradiologists. At present I do not appreciate the need for intervention for right vertebral artery occlusion although watchful observation and involvement of interventional neuroradiology is warranted. Plan: There are no immediate indications for vascular surgical interventions. Continue close observation and supportive management. While patient will likely benefit from anti-platelet therapy I will defer its management to medical team. Consider involvement of Neurology. I appreciate this consultation and the possibility to participate in patient's care. Frankie Valdez MD Vascular Surgery. - Date & Time Date: 11/09/16 Time: 14:14
--- NOTE | 2016-11-09 15:45 | CP.PCM.CON ---
History of Present Illness - History of Present Illness History of Present Illness: Mr. Malik is a 66-year-old man with a past medical history of Hep C (on Harvoni) , PAD, CAD (history of CABG), HTN, depression, peripheral neuropathy, who states that he woke up yesterday and developed a spinning sensation, double vision, headache and nausea. CTA of the head/neck showed occlusion of the right vertebral artery near its origin and left MCA (M1) occlusion. He has good collateral circulation and reconstitution of the right vertebral artery. Today, he says that the spinning sensation is improved and his vision is better , but he continues to have some trouble with coordination and ambulation. He walked with physical therapy and was able to do so after focusing on one spot and walking straight. His headache is mild today, he denies nausea, vomiting, abdominal pain, new weakness, sensory changes, worsening vision, chest pain or shortness of breath. Review of Systems - Review of Systems All systems: reviewed and no additional remarkable complaints except Past Patient History - Past Medical History & Family History Past Medical History?: Yes - Past Social History Smoking Status: Never Smoked Alcohol: None Drugs: Denies Domestic Violence: Negative - CARDIAC Hx Cardiac Disorders: Yes Hx Hypertension: Yes Other/Comment: cabg x 4 - PULMONARY Hx Respiratory Disorders: No - NEUROLOGICAL Hx Neurological Disorder: No - HEENT Hx HEENT Problems: No - RENAL Hx Chronic Kidney Disease: No - ENDOCRINE/METABOLIC Hx Endocrine Disorders: Yes Other/Comment: borderline DM - HEMATOLOGICAL/ONCOLOGICAL Hx Blood Disorders: Yes Hx Hepatitis C: Yes - INTEGUMENTARY Hx Dermatological Problems: No - MUSCULOSKELETAL/RHEUMATOLOGICAL Hx Musculoskeletal Disorders: No Hx Falls: No - GASTROINTESTINAL Hx Gastrointestinal Disorders: No - GENITOURINARY/GYNECOLOGICAL Hx Genitourinary Disorders: No - PSYCHIATRIC Hx Psychophysiologic Disorder: No Hx Substance Use: No - SURGICAL HISTORY Hx Surgeries: Yes Hx Coronary Artery Bypass Graft: Yes (Quadruple bypass) Hx Herniorrhaphy: Yes Hx Splenectomy: Yes - ANESTHESIA Hx Anesthesia: Yes Hx Anesthesia Reactions: No Hx Malignant Hyperthermia: No Meds Allergies/Adverse Reactions: Allergies Allergy/AdvReac Type Severity Reaction Status Date / Time No Known Allergies Allergy Verified 11/08/16 06:44 - Medications Medications: Current Medications Acetaminophen (Tylenol 325mg Tab) 650 mg PO Q6 PRN PRN Reason: Headache Last Admin: 11/08/16 16:33 Dose: 650 mg Acetaminophen/Butalbital/Caffeine (Fioricet) 1 tab PO Q4 PRN PRN Reason: Pain, moderate (4-7) Last Admin: 11/09/16 12:02 Dose: 1 tab Amlodipine Besylate (Norvasc) 5 mg PO Q12 [facility] Aspirin (Aspirin Chewable) 81 mg PO DAILY [facility] Last Admin: 11/09/16 14:51 Dose: 81 mg Atorvastatin Calcium (Lipitor) 20 mg PO DAILY [facility] Clopidogrel Bisulfate (Plavix) 75 mg PO DAILY [facility] Last Admin: 11/09/16 14:51 Dose: 75 mg Enoxaparin Sodium (Lovenox) 40 mg SC DAILY [facility] PRN Reason: Protocol Last Admin: 11/09/16 09:31 Dose: 40 mg Escitalopram Oxalate (Lexapro) 10 mg PO DAILY [facility] Last Admin: 11/09/16 09:31 Dose: 10 mg Gabapentin (Neurontin) 300 mg PO TID [facility] Last Admin: 11/09/16 14:51 Dose: 300 mg Home Med (Patient's Own Medication) 1 unit PO DAILY [facility] Piperacillin Sod/Tazobactam (Sod 3.375 gm/ Sodium Chloride) 100 mls @ 100 mls/ hr IVPB Q6 [facility] Last Admin: 11/09/16 15:01 Dose: 100 mls/hr Losartan Potassium (Cozaar) 50 mg PO DAILY [facility] Last Admin: 11/09/16 14:27 Dose: Not Given Meclizine HCl (Antivert) 25 mg PO Q8@0200,1000,1800 [facility] Last Admin: 11/09/16 09:30 Dose: 25 mg Metoprolol Tartrate (Lopressor) 50 mg PO BID [facility] Last Admin: 11/09/16 09:31 Dose: 50 mg Temazepam (Restoril) 30 mg PO HS [facility] Last Admin: 11/08/16 21:06 Dose: 30 mg Tramadol HCl (Ultram) 50 mg PO BID PRN PRN Reason: Pain, severe (8-10) Last Admin: 11/08/16 15:35 Dose: 50 mg Physical Exam - Constitutional Appears: Well - Head Exam Head Exam: ATRAUMATIC, NORMAL INSPECTION, NORMOCEPHALIC - Eye Exam Eye Exam: EOMI, Normal appearance, PERRL - ENT Exam ENT Exam: Mucous Membranes Moist, Normal Exam - Respiratory Exam Respiratory Exam: Clear to Auscultation Bilateral, NORMAL BREATHING PATTERN - Cardiovascular Exam Cardiovascular Exam: REGULAR RHYTHM, +S1, +S2 - GI/Abdominal Exam GI & Abdominal Exam: Normal Bowel Sounds, Soft. absent: Tenderness - Rectal Exam Rectal Exam: Deferred - Extremities Exam Extremities exam: Positive for: normal inspection - Back Exam Back exam: NORMAL INSPECTION - Neurological Exam Neurological exam: Abnormal Gait, CN II-XII Intact, Oriented x3, Reflexes Normal - Expanded Neurological Exam Expanded Patient oriented to: person, place, time Cranial nerves: EOM's Intact: Normal, Facial Palsey w/Forehead Movement: Normal , Facial Sensation: Normal, Gag Reflex: Normal, Nystagmus: Abnormal Right ( beating to the right) Ataxia: Yes (mild on the left) Cerebellar Function: Finger to Nose: Abnormal Left Upper motor neuron: Babinski Sign: Normal Sensory exam: Lower Extremity 2 Point Discrimination: Normal, Lower Extremity Light Touch: Normal, Lower Extremity Pin Prick: Normal, Lower Extremity Temperature: Normal, Upper Extremity 2 Point Discrimination: Normal, Upper Extremity Light Touch: Normal, Upper Extremity Pin Prick: Normal, Upper Extremity Temperature: Normal Neuro motor strength exam: Left Upper Extremity: 5, Right Upper Extremity: 5, Left Lower Extremity: 5, Right Lower Extremity: 5 DTR: Achilles Tendon Left: 2+, Achilles Tendon Right: 2+, Bicep Left: 2+, Bicep Right: 2+, Brachioradialis Left: 2+, Brachioradialis Right: 2+, Patellar Left: 2 +, Patellar Right: 2+, Tricep Left: 2+, Tricep Right: 2+ - Psychiatric Exam Psychiatric exam: Normal Affect, Normal Mood - Skin Skin Exam: Dry, Intact, Normal Color, Warm Results - Vital Signs Recent Vital Signs: Last Vital Signs Temp 97.7 F 11/09/16 12:36 Pulse 57 L 11/09/16 12:36 Resp 18 11/09/16 12:36 BP 134/69 11/09/16 12:36 Pulse Ox 95 11/09/16 12:36 - Labs Result Diagrams: 11/09/16 05:45 11/09/16 05:45 Labs: Laboratory Results - last 24 hr 11/08/16 11/09/16 11/09/16 19:23 05:45 05:45 WBC 19.7 H RBC 5.33 Hgb 15.8 Hct 47.7 MCV 89.5 MCH 29.7 MCHC 33.2 RDW 14.9 H Plt Count 335 ESR 8 Sodium 144 Potassium 3.7 Chloride 107 Carbon Dioxide 23 Anion Gap 17 BUN 27 H Creatinine 1.2 Est GFR ( Amer) > 60 Est GFR (Non-Af Amer) > 60 Random Glucose 137 H Hemoglobin A1c 6.0 Calcium 9.2 Magnesium 1.9 Troponin I 0.0180 Thyroxine (T4) 6.62 Total T3 0.832 L TSH 3rd Generation 0.57 - Imaging and Cardiology CT scan - head Status: Image reviewed by me, Report reviewed by me (Right vert occlusion with reconstitution, left MCA occlusion with good collateral circulation. ) Assessment & Plan - Assessment and Plan (Free Text) Assessment: The patient is a 66-year-old man with multiple medical co-morbidities, who presented with posterior circulation symptoms that include vertigo, nausea, diplopia and headache. CTA of the head/neck showed occlusion of the right vertebral, and likely more chronically occluded left M1. I recommend the followin. Telemetry; 2. Echocardiogram with bubble study (consider NISHA if TTE is negative); 3. MRI of the brain without contrast and MRA of the head/neck without contrast; 4. Load with Plavix 300 mg ONCE, continue Plavix 75 mg daily, and give aspirin 81 mg daily; 5. Hydration with NS at 100 mL/hr; 6. Permissive hypertension (do not treat BP lower than 220/110 mm Hg for the next 36-48 hours) ; 7. PT/OT eval and treat; 8. DVT Px; 9. Q2 hour neuro checks and call code stroke if there is worsening neurologic function. Thank you.
--- NOTE | 2016-11-09 20:32 | MRI ---
EXAM: MR Angiography Neck Without Intravenous Contrast CLINICAL HISTORY: 66 years old, male; Signs and symptoms; Dizziness and giddiness; Additional info: Syncope TECHNIQUE: Magnetic resonance angiography images of the neck without intravenous contrast. EXAM DATE/TIME: 11/09/2016 9:00 AM COMPARISON: Report from a recent CTA neck. The prior study itself is currently unavailable. FINDINGS: LIMITATIONS: Mild to moderate streak/motion artifact. RIGHT COMMON CAROTID ARTERY: No evidence of occlusion. RIGHT INTERNAL CAROTID ARTERY: No evidence of occlusion. RIGHT EXTERNAL CAROTID ARTERY: No evidence of occlusion. RIGHT VERTEBRAL ARTERY: There is absent flow related enhancement of the right vertebral artery, highly suspicious for occlusion. LEFT COMMON CAROTID ARTERY: No evidence of occlusion. LEFT INTERNAL CAROTID ARTERY: No evidence of occlusion. LEFT EXTERNAL CAROTID ARTERY: No evidence of occlusion.. LEFT VERTEBRAL ARTERY: No evidence of occlusion. SOFT TISSUES: THYROID: Right lobe of the thyroid gland is enlarged, and contains a large approximately 3.3 cm nodule. Recommend thyroid ultrasound or scintigraphy for further evaluation, given the size of this nodule, on a nonemergent basis, unless otherwise clinically indicated. CAROTID STENOSIS REFERENCE USING NASCET CRITERIA: % ICA stenosis = (1 - narrowest ICA diameter/diameter of distal cervical ICA) x 100. Mild - <50% stenosis. Moderate - 50-69% stenosis. Severe - 70-94% stenosis. Near occlusion - 95-99% stenosis. Occluded - 100% stenosis. IMPRESSION: - Absent enhancement of the right vertebral artery diffusely, highly suspicious for occlusion. - Incidental thyroid nodule. See above. - See above for remaining findings.
--- NOTE | 2016-11-09 20:40 | MRI ---
EXAM: MR Angiography Head Without Intravenous Contrast CLINICAL HISTORY: 66 years old, male; Signs and symptoms; Dizziness and giddiness and headache; Additional info: Syncope TECHNIQUE: Magnetic resonance angiography images of the head without intravenous contrast. EXAM DATE/TIME: 11/09/2016 9:00 AM COMPARISON: Report from a recent CTA of the brain. The prior study itself is currently unavailable. FINDINGS: RIGHT INTERNAL CAROTID ARTERY: Intracranial segment is patent with no evidence of occlusion. No aneurysm. RIGHT ANTERIOR CEREBRAL ARTERY: No evidence of occlusion. No aneurysm visualized. RIGHT MIDDLE CEREBRAL ARTERY: No evidence of occlusion. No aneurysm visualized. RIGHT POSTERIOR CEREBRAL ARTERY: No evidence of occlusion. No aneurysm visualized. RIGHT VERTEBRAL ARTERY: Absent flow related enhancement of the right vertebral artery, as seen on the recent MR angiogram of the neck, highly suspicious for occlusion. LEFT INTERNAL CAROTID ARTERY: Intracranial segment is patent with no evidence of occlusion. No aneurysm visualized. LEFT ANTERIOR CEREBRAL ARTERY: No evidence of occlusion. No aneurysm visualized. LEFT MIDDLE CEREBRAL ARTERY: Absent flow related enhancement of the left middle cerebral artery, at its origin, highly suspicious for occlusion. LEFT POSTERIOR CEREBRAL ARTERY: No evidence of occlusion. No aneurysm visualized. LEFT VERTEBRAL ARTERY: Left vertebral artery appears patent. BASILAR ARTERY: No evidence of occlusion. No aneurysm visualized. IMPRESSION: - Absent enhancement of the left middle cerebral artery, at its origin, highly suspicious for occlusion. - See above for remaining findings.
--- NOTE | 2016-11-09 21:01 | CP.PCM.PCO ---
Physician Communication Note - Physician Communication Note Physician Communication Note: MRA of Brain and Neck
--- NOTE | 2016-11-09 21:20 | MRI ---
EXAM: MR Head Without Intravenous Contrast CLINICAL HISTORY: 66 years old, male; Signs and symptoms; Dizziness; Patient HX: Medical history, hypertension/borderline diabetes/hepatitis c , pat was admiting in ed with a headache@ dizz; Additional info: Pre-syncope, double vision TECHNIQUE: Magnetic resonance images of the head/brain without intravenous contrast in multiple planes. EXAM DATE/TIME: 11/09/2016 9:00 AM COMPARISON: Prior head CT of 11/08/2016 FINDINGS: BRAIN: Best seen on image 6-8 of series 3, there is a small focus of restricted diffusion in the cerebellum, located just to the right of midline. This appears to involve the cerebellar vermis, specifically the nodule of the cerebellar vermis, just posterior to the fourth ventricle, at about the level of the middle cerebral peduncle. It measures approximately 1 cm in size. Scattered foci of increased T2 and FLAIR signal are seen in the white matter bilaterally, nonspecific in appearance, but most likely representing chronic small vessel ischemic changes, in a patient of this age. Diffuse, age-related cortical atrophy and ventriculomegaly. No additional acute infarcts visualized. No signal abnormality is seen to suggest acute intracranial hemorrhage. No evidence of significant mass effect within the brain. No acute extra-axial fluid collections visualized. VENTRICLES: See above. BONES/JOINTS: No acute bony abnormality identified. SINUSES: No evidence of sinus fluid levels. MASTOID AIR CELLS: Mastoid air cells appear clear. ORBITS: No acute intraorbital abnormality seen. 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 Please see above for a full description. - See above for remaining findings.
--- NOTE | 2016-11-09 22:44 | CARD ---
APPROVED REPORT EXAM: Two-dimensional and M-mode echocardiogram with Doppler, color Doppler with contrast. Other Information Quality : GoodRhythm : NSR INDICATION Syncope Echo Enhancing Agent Indication: Rule out thrombus Agent/Amount Used: Definity Surgery/Intervention CABG: Date: 2009 2D DIMENSIONS IVSd1.46 (0.7-1.1cm)LVDd5.27 (3.9-5.9cm) LVOT Diameter2.36 (1.8-2.4cm)PWd1.07 (0.7-1.1cm) IVSs1.61 (0.8-1.2cm)LVDs4.63 (2.5-4.0cm) FS (%) 12.2 %PWs1.32 (0.8-1.2cm) LVEF (%)40.0 (>50%) M-Mode DIMENSIONS Left Atrium (MM)4.59 (2.5-4.0cm)IVSd0.97 (0.7-1.1cm) Aortic Root4.06 (2.2-3.7cm)LVDd6.94 (4.0-5.6cm) Aortic Cusp Exc.2.41 (1.5-2.0cm)PWd1.15 (0.7-1.1cm) IVSs1.88 cmFS (%) 38 % LVDs4.29 (2.0-3.8cm)PWs1.74 cm Mitral Valve MV E Cdfdqywa33.9cm/sMV DECEL [id number] A Wdhcgtij31.1cm/s MV OYX13swN/A ratio2.1MVA (PHT)2.95cm2 TDI E/Lateral E'0.0E/Medial E'0.0 Pulmonary Valve PV Peak Xkjpizpj47.3cm/s Tricuspid Valve TR Peak Kkxdqjjw157rq/sRAP [id number] Peak Gr.25mmHg [id number] LEFT VENTRICLE The left ventricle is normal size. There is mild to moderate concentric left ventricular hypertrophy. The systolic function is moderately impaired. Apical hypokinesis Transmitral Doppler flow pattern is Grade II-pseudonormal filling dynamics. No left ventricle thrombus noted on this study. RIGHT VENTRICLE The right ventricle is normal size. There is normal right ventricular wall thickness. The right ventricular systolic function is normal. ATRIA The left atrium is moderately dilated. The right atrium is mildly dilated. AORTIC VALVE The aortic valve is mildly thickened. There is mild aortic regurgitation. There is no aortic valvular stenosis. MITRAL VALVE The mitral valve is moderately thickened. There is no mitral valve stenosis. Mitral regurgitation is moderate. TRICUSPID VALVE The tricuspid valve is normal in structure There is mild tricuspid regurgitation. There is mild pulmonary hypertension. PULMONIC VALVE The pulmonary valve is normal in structure There is mild pulmonic valvular regurgitation. GREAT VESSELS The aortic root is normal in size. The IVC is normal in size and collapses >50% with inspiration. PERICARDIAL EFFUSION The pericardium appears normal. <Conclusion> The left ventricle is normal size. There is mild to moderate concentric left ventricular hypertrophy. The systolic function is moderately impaired. Apical hypokinesis No left ventricle thrombus noted on this study. There is mild aortic regurgitation. There is no mitral valve stenosis. There is mild tricuspid regurgitation. There is mild pulmonary hypertension.
[2016-11-10] MEDS: Sodium Chloride 0.9% 1,000 ML IV SCH ×3 (03:06→22:01)
[2016-11-10] MEDS: Piperacillin/Tazobact 3.375 GM in Sodium Chloride 0.9% 100 ML IVPB SCH ×4 (03:08→21:57)
[2016-11-10 07:05] LABS: MEAN CELL VOLUME 91.1 fl (80.0-94.0); MEAN CORPUSCULAR HGB CONC 31.8 g/dL (33.0-37.0); RBC 5.17 Mil/uL (4.40-5.90); RED CELL DISTRIBUTION WIDTH 14.7 % (11.5-14.5); WHITE BLOOD COUNT 21.8 K/uL (4.8-10.8)
[2016-11-10 07:32] LABS: HDL CHOLESTEROL 26 MG/DL (30-70)
[2016-11-10 07:43] LABS: LDL CHOLESTEROL 130 mg/dL (0-129)
[2016-11-10] MEDS ORDERED: SOFOSBUVIR PO SCH (09:00)
[2016-11-10] MEDS ORDERED: LEDIPASVIR PO SCH (09:00)
[2016-11-10] MEDS: Enoxaparin 40 mg Syringe SC SCH (09:01)
[2016-11-10] MEDS: Apap-Butalbital-Caffeine 325-50-40mg Tab PO PRN ×2 (09:02→17:42)
--- NOTE | 2016-11-10 10:48 | CP.PCM.PN ---
Subjective - Date & Time of Evaluation Date of Evaluation: 11/10/16 Time of Evaluation: 10:42 - Subjective Subjective: No acute events overnight. Patient denies new in onset neurological deficits or recurrent headache. His vertigo, dizziness and balance have significantly improved. Objective - Vital Signs/Intake and Output Vital Signs (last 24 hours): Temp Pulse Resp BP Pulse Ox 97.6 F 55 L 18 155/79 H 94 L 11/10/16 08:02 11/10/16 08:02 11/10/16 08:02 11/10/16 08:02 11/10/16 08:02 - Medications Medications: Current Medications Acetaminophen (Tylenol 325mg Tab) 650 mg PO Q6 PRN PRN Reason: Headache Last Admin: 11/08/16 16:33 Dose: 650 mg Acetaminophen/Butalbital/Caffeine (Fioricet) 1 tab PO Q4 PRN PRN Reason: Pain, moderate (4-7) Last Admin: 11/10/16 09:02 Dose: 1 tab Amlodipine Besylate (Norvasc) 5 mg PO Q12 [facility] Aspirin (Aspirin Chewable) 81 mg PO DAILY [facility] Last Admin: 11/10/16 09:02 Dose: 81 mg Atorvastatin Calcium (Lipitor) 20 mg PO DAILY [facility] Last Admin: 11/10/16 09:03 Dose: 20 mg Clopidogrel Bisulfate (Plavix) 75 mg PO DAILY [facility] Last Admin: 11/10/16 09:03 Dose: 75 mg Enoxaparin Sodium (Lovenox) 40 mg SC DAILY [facility] PRN Reason: Protocol Last Admin: 11/10/16 09:01 Dose: 40 mg Escitalopram Oxalate (Lexapro) 10 mg PO DAILY [facility] Last Admin: 11/10/16 09:03 Dose: 10 mg Gabapentin (Neurontin) 300 mg PO TID [facility] Last Admin: 11/10/16 09:01 Dose: 300 mg Home Med (Ledipasvir/Sofosbuvir [Harvoni 90-400 Mg Tablet]) 1 tab PO DAILY [facility] Piperacillin Sod/Tazobactam (Sod 3.375 gm/ Sodium Chloride) 100 mls @ 100 mls/ hr IVPB Q6 [facility] Last Admin: 11/10/16 09:04 Dose: 100 mls/hr Sodium Chloride (Sodium Chloride 0.9%) 1,000 mls @ 100 mls/hr IV .Q10H [facility] Stop: 11/10/16 16:09 Last Admin: 11/10/16 03:06 Dose: 100 mls/hr Losartan Potassium (Cozaar) 50 mg PO DAILY [facility] Last Admin: 11/09/16 14:27 Dose: Not Given Meclizine HCl (Antivert) 25 mg PO Q8@0200,1000,1800 [facility] Last Admin: 11/10/16 09:02 Dose: 25 mg Metoprolol Tartrate (Lopressor) 50 mg PO BID [facility] Last Admin: 11/10/16 08:42 Dose: Not Given Temazepam (Restoril) 30 mg PO HS [facility] Last Admin: 11/09/16 22:43 Dose: 30 mg Tramadol HCl (Ultram) 50 mg PO BID PRN PRN Reason: Pain, severe (8-10) Last Admin: 11/08/16 15:35 Dose: 50 mg - Labs Labs: 11/10/16 05:30 11/09/16 05:45 - Constitutional Appears: Well, No Acute Distress - Head Exam Head Exam: NORMAL INSPECTION - Eye Exam Eye Exam: Normal appearance, PERRL Pupil Exam: NORMAL ACCOMODATION - ENT Exam ENT Exam: Mucous Membranes Moist, Normal Exam - Neck Exam Neck Exam: Normal Inspection - Respiratory Exam Respiratory Exam: NORMAL BREATHING PATTERN. absent: Wheezes - Cardiovascular Exam Cardiovascular Exam: REGULAR RHYTHM. absent: JVD - GI/Abdominal Exam GI & Abdominal Exam: Soft. absent: Distended - Extremities Exam Extremities Exam: Normal Capillary Refill, Normal Inspection. absent: Joint Swelling, Pedal Edema - Neurological Exam Neurological Exam: Alert, Awake, Oriented x3. absent: Motor Sensory Deficit - Skin Skin Exam: Intact, Normal Color, Warm Assessment and Plan - Assessment and Plan (Free Text) Assessment: Patient remains clinically stable and does not exhibit new or worsening neurological symptoms. His presenting symptoms have improved with medical care he received during this admission. Plan: Continue care as per Medicine, Neurology and cardiology teams. There are no immediate vascular surgical issues at present. Anti-platelet therapy.
--- NOTE | 2016-11-10 14:00 | CP.PCM.PN ---
<Nieves Ruiz - Last Filed: 11/10/16 14:23> Subjective - Date & Time of Evaluation Date of Evaluation: 11/10/16 Time of Evaluation: 07:00 - Subjective Subjective: Patient seen and examined at the bedside with attending. 66M reports dizziness and visual symptoms have improved. He denies any speech or swallowing difficulties, extremity weakness, SOB, or chest pain. Objective - Vital Signs/Intake and Output Vital Signs (last 24 hours): Temp Pulse Resp BP Pulse Ox 36.6 C 54 L 18 152/77 H 96 11/10/16 12:18 11/10/16 12:18 11/10/16 12:18 11/10/16 12:18 11/10/16 12:18 - Medications Medications: Current Medications Acetaminophen (Tylenol 325mg Tab) 650 mg PO Q6 PRN PRN Reason: Headache Last Admin: 11/08/16 16:33 Dose: 650 mg Acetaminophen/Butalbital/Caffeine (Fioricet) 1 tab PO Q4 PRN PRN Reason: Pain, moderate (4-7) Last Admin: 11/10/16 09:02 Dose: 1 tab Amlodipine Besylate (Norvasc) 5 mg PO Q12 [facility] Aspirin (Aspirin Chewable) 81 mg PO DAILY [facility] Last Admin: 11/10/16 09:02 Dose: 81 mg Atorvastatin Calcium (Lipitor) 20 mg PO DAILY [facility] Last Admin: 11/10/16 09:03 Dose: 20 mg Clopidogrel Bisulfate (Plavix) 75 mg PO DAILY [facility] Last Admin: 11/10/16 09:03 Dose: 75 mg Enoxaparin Sodium (Lovenox) 40 mg SC DAILY [facility] PRN Reason: Protocol Last Admin: 11/10/16 09:01 Dose: 40 mg Escitalopram Oxalate (Lexapro) 10 mg PO DAILY [facility] Last Admin: 11/10/16 09:03 Dose: 10 mg Gabapentin (Neurontin) 300 mg PO TID [facility] Last Admin: 11/10/16 12:19 Dose: 300 mg Home Med (Ledipasvir/Sofosbuvir [Harvoni 90-400 Mg Tablet]) 1 tab PO HS [facility] Piperacillin Sod/Tazobactam (Sod 3.375 gm/ Sodium Chloride) 100 mls @ 100 mls/ hr IVPB Q6 [facility] Last Admin: 11/10/16 09:04 Dose: 100 mls/hr Sodium Chloride (Sodium Chloride 0.9%) 1,000 mls @ 100 mls/hr IV .Q10H [facility] Stop: 11/10/16 16:09 Last Admin: 11/10/16 12:20 Dose: 100 mls/hr Losartan Potassium (Cozaar) 50 mg PO DAILY [facility] Last Admin: 11/09/16 14:27 Dose: Not Given Meclizine HCl (Antivert) 25 mg PO Q8@0200,1000,1800 [facility] Last Admin: 11/10/16 09:02 Dose: 25 mg Metoprolol Tartrate (Lopressor) 50 mg PO BID [facility] Last Admin: 11/10/16 08:42 Dose: Not Given Temazepam (Restoril) 30 mg PO HS [facility] Last Admin: 11/09/16 22:43 Dose: 30 mg Tramadol HCl (Ultram) 50 mg PO BID PRN PRN Reason: Pain, severe (8-10) Last Admin: 11/08/16 15:35 Dose: 50 mg - Labs Labs: 11/10/16 05:30 11/09/16 05:45 - Constitutional Appears: Well, Non-toxic, No Acute Distress - Head Exam Head Exam: ATRAUMATIC, NORMAL INSPECTION - Eye Exam Eye Exam: EOMI, PERRL - ENT Exam ENT Exam: Mucous Membranes Moist, Normal Exam - Neck Exam Neck Exam: Full ROM, Normal Inspection - Respiratory Exam Respiratory Exam: Clear to Ausculation Bilateral, NORMAL BREATHING PATTERN. absent: Rales, Wheezes - Cardiovascular Exam Cardiovascular Exam: REGULAR RHYTHM. absent: JVD - GI/Abdominal Exam GI & Abdominal Exam: Soft, Normal Bowel Sounds. absent: Tenderness - Extremities Exam Extremities Exam: Full ROM, Normal Capillary Refill. absent: Pedal Edema - Neurological Exam Neurological Exam: Alert, Awake, CN II-XII Intact, Oriented x3. absent: Motor Sensory Deficit - Psychiatric Exam Psychiatric exam: Normal Affect, Normal Mood - Skin Skin Exam: Normal Color, Warm Assessment and Plan (1) CVA (cerebral vascular accident) Assessment & Plan: MRI showing cerebellar infarct. Dr Griffiths arranging for neuroendovascular evaluation. Will discuss NISHA with cardiology, Dr Romero. - Neurology Consult (Dr Griffiths): MRI Brain w/o contrast, NISHA if TTE is negative to r/o atrial appendage thrombus, Permissive HTN, Load 300mg Plavix - Cardiology Consult (Dr Romero): EKG- no arrhythmia, Echocardiography- - Vascular Surgery Consult (Dr Valdez): No surgical intervention at this time, recommend DAP and neuro-interventional radiology evaluation - Plavix 300mg, PO, x1 loading - Started Aspirin 81mg, PO, Daily - Started Plavix 75mg, PO, Daily - MRI Brain: Rt cerebellar infarct - MRA Head: Lt MCA occlusion at origin - MRA Neck: Rt vertebral occlusion - c/w NS @ 100cc/hr - Neurochecks Q2H - TTE: apical hypokinesis, mild pulm HTN, moderae systolic impairment, no L thrombus noted - BP medication held at this time EXCEPT beta vanda - Meclizine 25mg, PO, Q8H Status: Acute (2) Leukocytosis, unspecified Assessment & Plan: Asymptomatic. Still suspect steroids at this time. - Procalcitonin sent - no antibiotics at this time Status: Acute (3) DVT prophylaxis Assessment & Plan: Lovenox 40mg, SC, Daily Status: Acute (4) H/O four vessel coronary artery bypass graft Assessment & Plan: Chronic stable, will c/w beta vanda. Status: Chronic (5) CAD (coronary artery disease) Assessment & Plan: Stable, c/w aspirin, beta vanda Status: Chronic (6) HTN (hypertension) Assessment & Plan: Allow permissive HTN at this time as per Neuro. Status: Chronic (7) Hepatitis C Assessment & Plan: Needs to continue with home regimen. Daughter to bring meds from home Status: Chronic <Salgado,Tommy K - Last Filed: 11/24/16 15:44> Objective - Vital Signs/Intake and Output Vital Signs (last 24 hours): Temp Pulse Resp BP Pulse Ox 97.2 F L 62 18 183/103 H 98 11/13/16 08:04 11/13/16 11:04 11/13/16 08:04 11/13/16 11:04 11/15/16 05:57 - Labs Labs: 11/13/16 04:10 11/13/16 04:10 PT 11.8 Seconds (9.8-13.1) 11/13/16 04:10 INR 1.0 (0.9-1.2) 11/13/16 04:10 APTT 48.4 Seconds (25.6-37.1) H D 11/13/16 04:10 Assessment and Plan - Assessment and Plan (Free Text) Assessment: Patient was personally seen and examined by me in rounds with residents. Available labs and diagnostic data reviewed. Case, patient's condition and management plan discussed with residents in rounds. Agree with resident's progress note. Plan: As ordered.
[2016-11-10 14:01] LABS: MEAN PLATELET VOLUME 9.5 fl (7.2-11.7)
[2016-11-10 14:07] LABS: BASO % 0.2 % (0.0-2.0); EOS % 0.1 % (0.0-4.0); LYMPH # 3.5 K/uL (1.0-4.3); LYMPH % 16.4 % (20.0-40.0); MONO # 1.8 K/uL (0.0-0.8); MONO % 8.5 % (0.0-10.0); NEUT % 74.8 % (50.0-75.0); NRBC % 0.1 % (0.0-0.0)
--- NOTE | 2016-11-10 14:29 | PQF GENQUE ---
Dr. Salgado, Etiology of Syncope ?if known after the work up is completed 11/10 Progress note draft: Resident working with the attending: Assessment and Plan : Pre-syncope Assessment Plan: Likely multifactorial, however most concerning is both anterior and posterior cerebral vessel occlusions Lt MCA and Rt Vertebral with associated vertigo and visual disturbance. Orthostatics negative, awaiting echo results. - Neurology Consult: MRI Brain w/o contrast, NISHA if TTE is negative to r/o atrial appendage thrombus, Permissive HTN, Load 300mg Plavix - Cardiology Consult : EKG, Echocardiography, - Vascular Surgery Consult ): No surgical intervention at this time, recommend DAP and neuro- interventional radiology evaluation - Plavix 300mg, PO, x1 loading - Started Aspirin 81mg, PO, Daily - Started Plavix 75mg, PO, Daily - MRI Brain, MRA Head /Neck - NS @ 100cc/hr - Neurochecks Q2H - Awaiting TTE results - BP medication held at this time EXCEPT beta vanda - Meclizine 25mg, PO, Q8H Status: Acute This form is a permanent part of the medical record Clarification of your documentation is requested to better reflect the severity of illness and intensity of treatment of your patient. Indicators present [] Specify: [] [] Specify: [] [] Specify: [] [] Specify: [] Location in the medical record that reflects the above clinical findings: [] Treatment Provided: [] PHYSICIAN'S RESPONSE Based on your medical judgment of the clinical indicators outlined above please clarify the following: [] Practitioner response [] If unable to determine, please check the box, sign and date. Present On Admission (POA) Indicator: [] Present at the time of admission [] Not present at the time of admission [] Clinically Undetermined In responding to this query, please exercise your independent professional judgment. The fact that a question is asked does not imply that any particular answer is desired or expected. Thank you for your clarification on this documentation. If you have any questions please call. * Thank you, Chantell Damian RN BSN ext. #[phone] MTDD
[2016-11-10 14:42] LABS: BASO # 0.1 K/uL (0.0-0.2); BASO % 0.3 % (0.0-2.0); HEMOGLOBIN 15.9 g/dL (12.0-18.0); LYMPH # 5.1 K/uL (1.0-4.3); LYMPH % 25.3 % (20.0-40.0); MEAN CELL VOLUME 90.3 fl (80.0-94.0); MEAN CORPUSCULAR HGB CONC 33.2 g/dL (33.0-37.0); MEAN PLATELET VOLUME 9.2 fl (7.2-11.7); MONO # 1.9 K/uL (0.0-0.8); MONO % 9.7 % (0.0-10.0); NEUT # 12.9 K/uL (1.8-7.0); NEUT % 64.7 % (50.0-75.0); RBC 5.31 Mil/uL (4.40-5.90); RED CELL DISTRIBUTION WIDTH 14.8 % (11.5-14.5)
--- NOTE | 2016-11-10 20:23 | CP.PCM.PN ---
Subjective - Date & Time of Evaluation Date of Evaluation: 11/10/16 Time of Evaluation: 12:00 - Subjective Subjective: Mr. Malik was seen and examined today at bedside. His was present and we discussed the results of the MRI/MRA of the head/neck. I informed the patient that he did have a small stroke in the cerebellum and that he would likely improve. I also let him know that I agreed with vascular surgery and recommended a diagnostic cerebral angiogram for further evaluation of the multi- vessel occlusions. Objective - Vital Signs/Intake and Output Vital Signs (last 24 hours): Temp Pulse Resp BP Pulse Ox 97.7 F 58 L 16 168/87 H 95 11/10/16 16:56 11/10/16 16:56 11/10/16 16:56 11/10/16 16:56 11/10/16 16:56 Intake and Output: 11/10/16 11/11/16 18:59 06:59 Intake Total 1400 Balance 1400 - Medications Medications: Current Medications Acetaminophen (Tylenol 325mg Tab) 650 mg PO Q6 PRN PRN Reason: Headache Last Admin: 11/08/16 16:33 Dose: 650 mg Acetaminophen/Butalbital/Caffeine (Fioricet) 1 tab PO Q4 PRN PRN Reason: Pain, moderate (4-7) Last Admin: 11/10/16 17:42 Dose: 1 tab Amlodipine Besylate (Norvasc) 5 mg PO Q12 [facility] Aspirin (Aspirin Chewable) 81 mg PO DAILY [facility] Last Admin: 11/10/16 09:02 Dose: 81 mg Atorvastatin Calcium (Lipitor) 20 mg PO DAILY [facility] Last Admin: 11/10/16 09:03 Dose: 20 mg Clopidogrel Bisulfate (Plavix) 75 mg PO DAILY [facility] Last Admin: 11/10/16 09:03 Dose: 75 mg Enoxaparin Sodium (Lovenox) 40 mg SC DAILY [facility] PRN Reason: Protocol Last Admin: 11/10/16 09:01 Dose: 40 mg Escitalopram Oxalate (Lexapro) 10 mg PO DAILY [facility] Last Admin: 11/10/16 09:03 Dose: 10 mg Gabapentin (Neurontin) 300 mg PO TID [facility] Last Admin: 11/10/16 17:43 Dose: 300 mg Home Med (Ledipasvir/Sofosbuvir [Harvoni 90-400 Mg Tablet]) 1 tab PO HS [facility] Piperacillin Sod/Tazobactam (Sod 3.375 gm/ Sodium Chloride) 100 mls @ 100 mls/ hr IVPB Q6 [facility] Last Admin: 11/10/16 17:43 Dose: 100 mls/hr Losartan Potassium (Cozaar) 50 mg PO DAILY [facility] Last Admin: 11/09/16 14:27 Dose: Not Given Meclizine HCl (Antivert) 25 mg PO Q8@0200,1000,1800 [facility] Last Admin: 11/10/16 17:43 Dose: 25 mg Metoprolol Tartrate (Lopressor) 50 mg PO BID [facility] Last Admin: 11/10/16 17:43 Dose: Not Given Temazepam (Restoril) 30 mg PO HS [facility] Last Admin: 11/09/16 22:43 Dose: 30 mg Tramadol HCl (Ultram) 50 mg PO BID PRN PRN Reason: Pain, severe (8-10) Last Admin: 11/08/16 15:35 Dose: 50 mg - Labs Labs: 11/10/16 13:04 11/09/16 05:45 - Neurological Exam Neurological Exam: Abnormal Gait, CN II-XII Intact, Oriented x3 Neuro motor strength exam: Left Upper Extremity: 5, Right Upper Extremity: 5, Left Lower Extremity: 5, Right Lower Extremity: 5 Additional comments: Essentially, neurologically unchanged compared with previous examination. Assessment and Plan (1) Cerebellar stroke Assessment & Plan: This is likely due to the vertebral artery occlusion. It is a small stroke potentially as a result of good collateral circulation. I recommend obtaining a diagnostic cerebral angiogram for further evaluation. The etiology of the stroke is likely cardioembolic considering his cardiac disease and lack of good motility on recent TTE. I recommend obtaining a NISHA to rule out thrombus in the left atrial appendage. Continue fluids, permissive hypertension, DVT Px and antiplatelet agents. I have discussed transfer to [place] for a possible diagnostic cerebral angiogram with Dr. Hoffman and Dr. Metcalf. This was discussed with Dr. Salgado as well. Status: Acute
[2016-11-10] MEDS: SOFOSBUVIR PO SCH (22:02)
[2016-11-10] MEDS: LEDIPASVIR PO SCH (22:02)
[2016-11-11] MEDS: Piperacillin/Tazobact 3.375 GM in Sodium Chloride 0.9% 100 ML IVPB SCH ×4 (03:03→21:21)
[2016-11-11 08:01] LABS: HEMOGLOBIN 16.9 g/dL (12.0-18.0); MEAN CELL VOLUME 89.8 fl (80.0-94.0); MEAN CORPUSCULAR HEMOGLOBIN 29.8 pg (27.0-31.0); MEAN CORPUSCULAR HGB CONC 33.2 g/dL (33.0-37.0); RBC 5.66 Mil/uL (4.40-5.90); WHITE BLOOD COUNT 17.2 K/uL (4.8-10.8)
[2016-11-11] MEDS: Enoxaparin 40 mg Syringe SC SCH (08:30)
[2016-11-11 08:31] LABS: ALB/GLOB RATIO 1.1 (1.0-2.1); ALBUMIN 3.9 g/dL (3.5-5.0); ALT/SGPT 29 U/L (21-72); AST/SGOT 29 U/L (17-59); BLOOD UREA NITROGEN 23 mg/dl (9-20); CALCIUM 9.1 mg/dL (8.4-10.2); GFR AFRICAN-AMERICAN > 60; GFR NON-AFRICAN AMERICAN 55
[2016-11-11] MEDS: Sodium Chloride 0.9% 1,000 ML IV SCH ×2 (08:31→17:04)
--- NOTE | 2016-11-11 08:58 | PN ---
DATE: 11/11/2016 The patient seen and examined. Interim events noted. Consults noted and appreciated. Neurology and vascular surgery followup and interventions noted and appreciated. The patient remains in ____ care unit on telemetry monitoring. Feels okay. Denies any new complaints. Denies any dizziness, chest pain, shortness of breath or any weakness or swallowing or speech difficulty. PHYSICAL EXAMINATION: GENERAL: The patient is in no acute distress. VITAL SIGNS: Stable. HEART: S1, S2 normal, regular. LUNGS: Good bilateral air exchange. ABDOMEN: Soft, nontender. EXTREMITIES: No edema, no calf swelling, no tenderness, no acute ischemia. CENTRAL NERVOUS SYSTEM: Essentially unchanged. DIAGNOSTIC DATA: Available diagnostic data reviewed. Telemetry monitoring does not reveal arrhythmi a. Case was discussed with the neurologist yesterday. ____ the patient is stable for transfer to [facility] on Sunday. PLAN: As ordered. Case and plan discussed with patient. Tommy Salgado MD cc: [id number] TT: 11/11/2016 08:57:40 Confirmation # [id number] Dictation # [id number]
[2016-11-11 09:34] LABS: PROTHROMBIN TIME 11.1 Seconds (9.8-13.1)
[2016-11-11 09:35] LABS: PARTIAL THROMBOPLASTIN TIME 32.5 Seconds (25.6-37.1)
--- NOTE | 2016-11-11 11:05 | CP.PCM.CON ---
History of Present Illness - History of Present Illness History of Present Illness: This is a 66 yrs old male who was admitted with c/o dizziness and a near syncopal episode. He has a h/o CAD with CABG 4 yrs ago.he also had a splenectomy for a ruptured spleen 2 yrs ago. He is also borderline diabetic, and has HTN. 2 yrs ago he was started on harvoni for hepatitis c. He had been feeling a little listless, Since then. Now he started having dizziness, diplopia and headaches. Ct scan of the btain which was normal. There seemed to be a obstruction to the right vertebral artery and the MCA. He is feeling better now, On Sunday he is going to [facility] for cerebral angiogram. I was called to see the pt because of a persistent leukocytosis. On admission WBC was 18.1, went up to 21.8 and is now down to 17.2.His neutrophils have increased from 43% to 64%, but there is no shift to the left The hgb was 17.2 on admission and now 6.9. Platelets have been normal. He is from [place] and it is not known if the counts are normally, that high. He had no prior h/o similar complaints. Past Patient History - Past Medical History & Family History Past Medical History?: Yes - Past Social History Smoking Status: Never Smoked Alcohol: None Drugs: Denies Domestic Violence: Negative - CARDIAC Hx Cardiac Disorders: Yes Hx Hypertension: Yes Other/Comment: cabg x 4 - PULMONARY Hx Respiratory Disorders: No - NEUROLOGICAL Hx Neurological Disorder: No - HEENT Hx HEENT Problems: No - RENAL Hx Chronic Kidney Disease: No - ENDOCRINE/METABOLIC Hx Endocrine Disorders: Yes Other/Comment: borderline DM - HEMATOLOGICAL/ONCOLOGICAL Hx Blood Disorders: Yes Hx Hepatitis C: Yes - INTEGUMENTARY Hx Dermatological Problems: No - MUSCULOSKELETAL/RHEUMATOLOGICAL Hx Musculoskeletal Disorders: No Hx Falls: No - GASTROINTESTINAL Hx Gastrointestinal Disorders: No - GENITOURINARY/GYNECOLOGICAL Hx Genitourinary Disorders: No - PSYCHIATRIC Hx Psychophysiologic Disorder: No Hx Substance Use: No - SURGICAL HISTORY Hx Surgeries: Yes Hx Coronary Artery Bypass Graft: Yes (Quadruple bypass) Hx Herniorrhaphy: Yes Hx Splenectomy: Yes - ANESTHESIA Hx Anesthesia: Yes Hx Anesthesia Reactions: No Hx Malignant Hyperthermia: No Meds Allergies/Adverse Reactions: Allergies Allergy/AdvReac Type Severity Reaction Status Date / Time No Known Allergies Allergy Verified 11/08/16 06:44 - Medications Medications: Current Medications Acetaminophen (Tylenol 325mg Tab) 650 mg PO Q6 PRN PRN Reason: Headache Last Admin: 11/08/16 16:33 Dose: 650 mg Acetaminophen/Butalbital/Caffeine (Fioricet) 1 tab PO Q4 PRN PRN Reason: Pain, moderate (4-7) Last Admin: 11/10/16 17:42 Dose: 1 tab Amlodipine Besylate (Norvasc) 5 mg PO Q12 [facility] Aspirin (Aspirin Chewable) 81 mg PO DAILY [facility] Last Admin: 11/11/16 08:30 Dose: 81 mg Atorvastatin Calcium (Lipitor) 20 mg PO DAILY [facility] Last Admin: 11/11/16 08:29 Dose: 20 mg Clopidogrel Bisulfate (Plavix) 75 mg PO DAILY [facility] Last Admin: 11/11/16 08:30 Dose: 75 mg Enoxaparin Sodium (Lovenox) 40 mg SC DAILY [facility] PRN Reason: Protocol Last Admin: 11/11/16 08:30 Dose: 40 mg Escitalopram Oxalate (Lexapro) 10 mg PO DAILY [facility] Last Admin: 11/11/16 08:29 Dose: 10 mg Gabapentin (Neurontin) 300 mg PO TID [facility] Last Admin: 11/11/16 08:29 Dose: 300 mg Home Med (Ledipasvir/Sofosbuvir [Harvoni 90-400 Mg Tablet]) 1 tab PO HS [facility] Last Admin: 11/10/16 22:02 Dose: 1 tab Piperacillin Sod/Tazobactam (Sod 3.375 gm/ Sodium Chloride) 100 mls @ 100 mls/ hr IVPB Q6 [facility] Last Admin: 11/11/16 09:35 Dose: 100 mls/hr Sodium Chloride (Sodium Chloride 0.9%) 1,000 mls @ 100 mls/hr IV .Q10H [facility] Stop: 11/11/16 21:44 Last Admin: 11/11/16 08:31 Dose: 100 mls/hr Losartan Potassium (Cozaar) 50 mg PO DAILY [facility] Last Admin: 11/09/16 14:27 Dose: Not Given Meclizine HCl (Antivert) 25 mg PO Q8@0200,1000,1800 [facility] Last Admin: 11/11/16 09:36 Dose: 25 mg Metoprolol Tartrate (Lopressor) 50 mg PO BID [facility] Last Admin: 11/11/16 09:36 Dose: Not Given Temazepam (Restoril) 30 mg PO HS [facility] Last Admin: 11/10/16 21:55 Dose: 30 mg Tramadol HCl (Ultram) 50 mg PO BID PRN PRN Reason: Pain, severe (8-10) Last Admin: 11/08/16 15:35 Dose: 50 mg Physical Exam - Additional Findings Additional findings: Physical exam; Alert, well oriented in no acute distress neck; supple, no adenopathy Chest; Clear, no rales or rhonchi Heart; RSR, gr 1/6 systolic murmur. Abd; Soft no mass, no h/s megaly( spleen removed due to spontaneous rupture). Results - Vital Signs Recent Vital Signs: Last Vital Signs Temp 97.9 F 11/11/16 08:34 Pulse 62 11/11/16 09:00 Resp 18 11/11/16 08:34 BP 180/92 H 11/11/16 08:34 Pulse Ox 94 L 11/11/16 08:34 - Labs Result Diagrams: 11/11/16 06:00 11/11/16 06:00 Labs: Laboratory Results - last 24 hr 11/10/16 11/10/16 11/10/16 05:30 13:04 13:10 WBC 21.8 H 20.0 H RBC 5.17 5.31 Hgb 15.0 15.9 Hct 47.1 47.9 MCV 91.1 90.3 MCH 29.0 30.0 MCHC 31.8 L 33.2 RDW 14.7 H 14.8 H Plt Count 304 307 MPV 9.5 9.2 Neut % (Auto) 74.8 64.7 Lymph % (Auto) 16.4 L 25.3 Fleming % (Auto) 8.5 9.7 Eos % (Auto) 0.1 0.0 Baso % (Auto) 0.2 0.3 Neut # 16.0 H 12.9 H Lymph # 3.5 5.1 H Fleming # 1.8 H 1.9 H Eos # 0.0 0.0 Baso # 0.0 0.1 PT INR APTT Sodium Potassium Chloride Carbon Dioxide Anion Gap BUN Creatinine Est GFR ( Amer) Est GFR (Non-Af Amer) Random Glucose Calcium Total Bilirubin AST ALT Alkaline Phosphatase Total Protein Albumin Globulin Albumin/Globulin Ratio Procalcitonin 0.18 L 11/11/16 11/11/16 11/11/16 06:00 06:00 06:00 WBC 17.2 H RBC 5.66 Hgb 16.9 Hct 50.8 MCV 89.8 MCH 29.8 MCHC 33.2 RDW 15.0 H Plt Count 318 MPV Neut % (Auto) Lymph % (Auto) Fleming % (Auto) Eos % (Auto) Baso % (Auto) Neut # Lymph # Fleming # Eos # Baso # PT 11.1 INR 1.0 APTT 32.5 Sodium 146 Potassium 2.8 L Chloride 107 Carbon Dioxide 27 Anion Gap 15 BUN 23 H Creatinine 1.3 Est GFR ( Amer) > 60 Est GFR (Non-Af Amer) 55 Random Glucose 89 Calcium 9.1 Total Bilirubin 0.9 AST 29 ALT 29 Alkaline Phosphatase 74 Total Protein 7.4 Albumin 3.9 Globulin 3.5 Albumin/Globulin Ratio 1.1 Procalcitonin Assessment & Plan - Assessment and Plan (Free Text) Assessment: Impression; Leukocytosis could be reactive in nature, but cannot r/o a myeloproliferative disorder.polcythemiavera or CML Plan: Plan; Will ordera Leukocyte alkaline phosphatase and JENNIFER 2 mutatiom to be done on Sunday. - Date & Time Date: 11/11/16 Time: 11:28
--- NOTE | 2016-11-11 12:48 | CARD ---
APPROVED REPORT EKG Measurement Heart [id number] UT [id number] <Conclusion> Sinus rhythm with sinus arrhythmia with 1st degree AV block Possible Left atrial enlargement Left bundle branch block Abnormal ECG
--- NOTE | 2016-11-11 12:48 | CARD ---
APPROVED REPORT EKG Measurement Heart [id number] <Conclusion> Sinus rhythm with sinus arrhythmia with occasional premature ventricular complexes Possible Left atrial enlargement Left bundle branch block Abnormal ECG
--- NOTE | 2016-11-11 13:57 | CP.PCM.PN ---
Subjective - Date & Time of Evaluation Date of Evaluation: 11/11/16 Time of Evaluation: 13:55 - Subjective Subjective: pt w continued dizziness and vertigo. no n/v. appreciate Neuro input. discussed floyd with family. pt for transfer to [facility] at 11 am on sunday. Objective - Vital Signs/Intake and Output Vital Signs (last 24 hours): Temp Pulse Resp BP Pulse Ox 97.9 F 62 18 180/92 H 94 L 11/11/16 08:34 11/11/16 09:00 11/11/16 08:34 11/11/16 08:34 11/11/16 08:34 Intake and Output: 11/11/16 11/11/16 06:59 18:59 Intake Total 1640 Output Total 1200 Balance 440 - Medications Medications: Current Medications Acetaminophen (Tylenol 325mg Tab) 650 mg PO Q6 PRN PRN Reason: Headache Last Admin: 11/08/16 16:33 Dose: 650 mg Acetaminophen/Butalbital/Caffeine (Fioricet) 1 tab PO Q4 PRN PRN Reason: Pain, moderate (4-7) Last Admin: 11/10/16 17:42 Dose: 1 tab Amlodipine Besylate (Norvasc) 5 mg PO Q12 [facility] Aspirin (Aspirin Chewable) 81 mg PO DAILY [facility] Last Admin: 11/11/16 08:30 Dose: 81 mg Atorvastatin Calcium (Lipitor) 20 mg PO DAILY [facility] Last Admin: 11/11/16 08:29 Dose: 20 mg Clopidogrel Bisulfate (Plavix) 75 mg PO DAILY [facility] Last Admin: 11/11/16 08:30 Dose: 75 mg Enoxaparin Sodium (Lovenox) 40 mg SC DAILY [facility] PRN Reason: Protocol Last Admin: 11/11/16 08:30 Dose: 40 mg Escitalopram Oxalate (Lexapro) 10 mg PO DAILY [facility] Last Admin: 11/11/16 08:29 Dose: 10 mg Gabapentin (Neurontin) 300 mg PO TID [facility] Last Admin: 11/11/16 13:05 Dose: 300 mg Home Med (Ledipasvir/Sofosbuvir [Harvoni 90-400 Mg Tablet]) 1 tab PO HS [facility] Last Admin: 11/10/16 22:02 Dose: 1 tab Piperacillin Sod/Tazobactam (Sod 3.375 gm/ Sodium Chloride) 100 mls @ 100 mls/ hr IVPB Q6 [facility] Last Admin: 11/11/16 09:35 Dose: 100 mls/hr Sodium Chloride (Sodium Chloride 0.9%) 1,000 mls @ 100 mls/hr IV .Q10H [facility] Stop: 11/11/16 21:44 Last Admin: 11/11/16 08:31 Dose: 100 mls/hr Losartan Potassium (Cozaar) 50 mg PO DAILY [facility] Last Admin: 11/09/16 14:27 Dose: Not Given Meclizine HCl (Antivert) 25 mg PO Q8@0200,1000,1800 [facility] Last Admin: 11/11/16 09:36 Dose: 25 mg Metoprolol Tartrate (Lopressor) 50 mg PO BID [facility] Last Admin: 11/11/16 09:36 Dose: Not Given Temazepam (Restoril) 30 mg PO HS [facility] Last Admin: 11/10/16 21:55 Dose: 30 mg Tramadol HCl (Ultram) 50 mg PO BID PRN PRN Reason: Pain, severe (8-10) Last Admin: 11/08/16 15:35 Dose: 50 mg - Labs Labs: 11/11/16 06:00 11/11/16 06:00 PT 11.1 Seconds (9.8-13.1) 11/11/16 06:00 INR 1.0 (0.9-1.2) 11/11/16 06:00 APTT 32.5 Seconds (25.6-37.1) 11/11/16 06:00 - Constitutional Appears: Well - Head Exam Head Exam: ATRAUMATIC, NORMAL INSPECTION, NORMOCEPHALIC - Eye Exam Eye Exam: EOMI, Normal appearance, PERRL Pupil Exam: NORMAL ACCOMODATION, PERRL - ENT Exam ENT Exam: Mucous Membranes Moist, Normal Exam - Neck Exam Neck Exam: Full ROM, Normal Inspection. absent: Lymphadenopathy - Respiratory Exam Respiratory Exam: Clear to Ausculation Bilateral, NORMAL BREATHING PATTERN - Cardiovascular Exam Cardiovascular Exam: REGULAR RHYTHM, +S1, +S2, Murmur - GI/Abdominal Exam GI & Abdominal Exam: Soft, Normal Bowel Sounds. absent: Tenderness - Rectal Exam Rectal Exam: Deferred - Extremities Exam Extremities Exam: Full ROM, Normal Capillary Refill, Normal Inspection. absent : Joint Swelling, Pedal Edema - Back Exam Back Exam: NORMAL INSPECTION - Neurological Exam Neurological Exam: Awake, Oriented x3 - Psychiatric Exam Psychiatric exam: Normal Affect, Normal Mood - Skin Skin Exam: Dry, Intact, Normal Color, Warm Additional comments: no evidence of distal embolic disease Assessment and Plan (1) Vertigo Status: Acute (2) S/P CABG x 4 Status: Acute (3) CAD (coronary artery disease) Status: Chronic (4) LBBB (left bundle branch block) Status: Acute (5) Pre-syncope Status: Acute (6) HTN (hypertension) Status: Chronic (7) CVA (cerebral vascular accident) Status: Acute (8) Cerebellar stroke Status: Acute - Assessment and Plan (Free Text) Plan: will attempt to schedule FLOYD early sunday, however would not hold up transfer for this. FLOYD can be done at [facility] if need be. no arrythmias on monitor and no hx of arrythmias. LA is not enlarged. does not appear toxic as would with endocarditis. check esr monitor lytes d/w fam at length would check bc neuro to decide if pt should be on anticoag currently. monitor symptoms for progression. 45 min total care time.
[2016-11-11] MEDS ORDERED: Magnesium Sulfate 1 gm in D5W 1 GM/100 ML BAG IVPB ONE ×2 (14:04→16:30)
[2016-11-11] MEDS: Potassium Chloride 20 mEq/15 ml LIQ UD PO SCH ×2 (16:00→21:47)
[2016-11-11] MEDS ORDERED: Labetalol 5 mg/ml Inj 20ML IVP PRN (16:59)
--- NOTE | 2016-11-11 17:19 | CP.PCM.PN ---
Subjective - Date & Time of Evaluation Date of Evaluation: 11/11/16 Time of Evaluation: 17:16 - Subjective Subjective: Mr. Malik was seen and examined today at bedside. There were a few episodes of hypertension over 180 mm Hg systolic that were reported by nursing. We will continue permissive hypertension, but will reduce the parameters. Hematology had seen the patient as well for possible hyperviscosity. The family had some other questions that were answered to their satisfaction. Objective - Vital Signs/Intake and Output Vital Signs (last 24 hours): Temp Pulse Resp BP Pulse Ox 98.9 F 65 18 188/102 H 96 11/11/16 15:58 11/11/16 17:03 11/11/16 15:58 11/11/16 17:03 11/11/16 15:58 Intake and Output: 11/11/16 11/11/16 06:59 18:59 Intake Total 1640 Output Total 1200 Balance 440 - Medications Medications: Current Medications Acetaminophen (Tylenol 325mg Tab) 650 mg PO Q6 PRN PRN Reason: Headache Last Admin: 11/08/16 16:33 Dose: 650 mg Acetaminophen/Butalbital/Caffeine (Fioricet) 1 tab PO Q4 PRN PRN Reason: Pain, moderate (4-7) Last Admin: 11/10/16 17:42 Dose: 1 tab Amlodipine Besylate (Norvasc) 5 mg PO Q12 [facility] Aspirin (Aspirin Chewable) 81 mg PO DAILY [facility] Last Admin: 11/11/16 08:30 Dose: 81 mg Atorvastatin Calcium (Lipitor) 20 mg PO DAILY [facility] Last Admin: 11/11/16 08:29 Dose: 20 mg Clopidogrel Bisulfate (Plavix) 75 mg PO DAILY [facility] Last Admin: 11/11/16 08:30 Dose: 75 mg Enoxaparin Sodium (Lovenox) 40 mg SC DAILY [facility] PRN Reason: Protocol Last Admin: 11/11/16 08:30 Dose: 40 mg Escitalopram Oxalate (Lexapro) 10 mg PO DAILY [facility] Last Admin: 11/11/16 08:29 Dose: 10 mg Gabapentin (Neurontin) 300 mg PO TID [facility] Last Admin: 11/11/16 16:01 Dose: 300 mg Home Med (Ledipasvir/Sofosbuvir [Harvoni 90-400 Mg Tablet]) 1 tab PO HS [facility] Last Admin: 11/10/16 22:02 Dose: 1 tab Piperacillin Sod/Tazobactam (Sod 3.375 gm/ Sodium Chloride) 100 mls @ 100 mls/ hr IVPB Q6 [facility] Last Admin: 11/11/16 16:00 Dose: 100 mls/hr Sodium Chloride (Sodium Chloride 0.9%) 1,000 mls @ 100 mls/hr IV .Q10H [facility] Stop: 11/11/16 21:44 Last Admin: 11/11/16 17:04 Dose: 100 mls/hr Magnesium Sulfate/Dextrose (Magnesium Sulfate 1 Gm/100 Ml D5w) 1 gm in 100 mls @ 100 mls/hr IVPB ONCE ONE PRN Reason: 1 GM/HR Stop: 11/11/16 17:29 Last Admin: 11/11/16 17:02 Dose: 100 mls/hr Labetalol HCl (Trandate) 10 mg IVP Q4 PRN PRN Reason: Other Losartan Potassium (Cozaar) 50 mg PO DAILY [facility] Last Admin: 11/09/16 14:27 Dose: Not Given Meclizine HCl (Antivert) 25 mg PO Q8@0200,1000,1800 [facility] Last Admin: 11/11/16 17:03 Dose: 25 mg Metoprolol Tartrate (Lopressor) 12.5 mg PO Q12 [facility] Last Admin: 11/11/16 17:03 Dose: 12.5 mg Potassium Chloride (Potassium Chloride Oral Soln) 40 meq PO Q6 [facility] Stop: 11/12/16 04:01 Last Admin: 11/11/16 16:00 Dose: 40 meq Temazepam (Restoril) 30 mg PO HS [facility] Last Admin: 11/10/16 21:55 Dose: 30 mg - Labs Labs: 11/11/16 06:00 11/11/16 06:00 PT 11.1 Seconds (9.8-13.1) 11/11/16 06:00 INR 1.0 (0.9-1.2) 11/11/16 06:00 APTT 32.5 Seconds (25.6-37.1) 11/11/16 06:00 - Neurological Exam Additional comments: Neurologically unchanged compared to the previous examination. Assessment and Plan (1) Cerebellar stroke Assessment & Plan: Continue current antiplatelet agents, permissive hypertension (treat BP of 180/ 110 mm Hg with labetelol 10 mg IV once Q4 PRN), plan to transfer for angiogram and possible stent if needed. Q2 hour neuro checks. Status: Acute
[2016-11-11] MEDS: SOFOSBUVIR PO SCH (21:46)
[2016-11-11] MEDS: LEDIPASVIR PO SCH (21:46)
[2016-11-12] MEDS: Piperacillin/Tazobact 3.375 GM in Sodium Chloride 0.9% 100 ML IVPB SCH ×4 (03:04→21:08)
[2016-11-12] MEDS: Potassium Chloride 20 mEq/15 ml LIQ UD PO SCH (03:04)
[2016-11-12 07:11] LABS: HEMOGLOBIN 17.9 g/dL (12.0-18.0); MEAN CELL VOLUME 90.6 fl (80.0-94.0); MEAN CORPUSCULAR HEMOGLOBIN 29.7 pg (27.0-31.0); MEAN CORPUSCULAR HGB CONC 32.8 g/dL (33.0-37.0); RBC 6.01 Mil/uL (4.40-5.90); RED CELL DISTRIBUTION WIDTH 14.7 % (11.5-14.5); WHITE BLOOD COUNT 16.8 K/uL (4.8-10.8)
[2016-11-12 07:18] LABS: ALB/GLOB RATIO 1.2 (1.0-2.1); ALBUMIN 4.2 g/dL (3.5-5.0); ALT/SGPT 38 U/L (21-72); AST/SGOT 23 U/L (17-59); BLOOD UREA NITROGEN 18 mg/dl (9-20); CALCIUM 9.2 mg/dL (8.4-10.2); GFR AFRICAN-AMERICAN > 60; GFR NON-AFRICAN AMERICAN > 60
--- NOTE | 2016-11-12 08:09 | PN ---
DATE: 11/12/2016 The patient seen and examined. Interim events noted. Consults noted, appreciated. Cardiology, neur ology followup and intervention noted and appreciated. The patient remains in progressive care unit on telemetry monitoring. The patient ____ denies any specific new complaint. No chest pain, no shor tness of breath. Dizziness is getting better. PHYSICAL EXAMINATION: GENERAL: The patient is in no acute distress. VITAL SIGNS: Stable. HEART: S1, S2 normal, regular. LUNGS: Good bilateral air exchange. ABDOMEN: Soft, nontender. EXTREMITIES: No calf swelling, no tenderness, no ____. CENTRAL NERVOUS SYSTEM: Essentially unchanged. DIAGNOSTIC DATA: Available diagnostic data reviewed. Telemetry monitoring does not show significant arrhythmias. Overall, patient's general medical condition is stable. The patient is for transfer to [facility] tomorrow. PLAN: As ordered. Case and plan discussed with family in detail. Tommy Salgado MD cc: [id number] TT: 11/12/2016 08:08:25 Confirmation # [id number] Dictation # [id number]
[2016-11-12] MEDS: Enoxaparin 40 mg Syringe SC SCH (13:27)
[2016-11-12 15:38] VITALS: RESP 18
--- NOTE | 2016-11-12 16:26 | CP.PCM.PN ---
Subjective - Date & Time of Evaluation Date of Evaluation: 11/12/16 Time of Evaluation: 12:00 - Subjective Subjective: Mr. Malik was seen and examined today at bedside. He was in NAD, but still complained of dizziness that was improving. There were no acute events overnight. Objective - Vital Signs/Intake and Output Vital Signs (last 24 hours): Temp Pulse Resp BP Pulse Ox 98.1 F 63 18 146/85 93 L 11/12/16 15:37 11/12/16 15:37 11/12/16 15:37 11/12/16 15:37 11/12/16 15:37 - Medications Medications: Current Medications Acetaminophen (Tylenol 325mg Tab) 650 mg PO Q6 PRN PRN Reason: Headache Last Admin: 11/12/16 10:45 Dose: 650 mg Acetaminophen/Butalbital/Caffeine (Fioricet) 1 tab PO Q4 PRN PRN Reason: Pain, moderate (4-7) Last Admin: 11/10/16 17:42 Dose: 1 tab Amlodipine Besylate (Norvasc) 5 mg PO Q12 [facility] Aspirin (Aspirin Chewable) 81 mg PO DAILY [facility] Last Admin: 11/12/16 08:44 Dose: 81 mg Atorvastatin Calcium (Lipitor) 20 mg PO DAILY [facility] Last Admin: 11/12/16 10:37 Dose: 20 mg Clopidogrel Bisulfate (Plavix) 75 mg PO DAILY [facility] Last Admin: 11/12/16 13:29 Dose: 75 mg Escitalopram Oxalate (Lexapro) 10 mg PO DAILY [facility] Last Admin: 11/12/16 08:45 Dose: 10 mg Gabapentin (Neurontin) 300 mg PO TID [facility] Last Admin: 11/12/16 13:28 Dose: 300 mg Home Med (Ledipasvir/Sofosbuvir [Harvoni 90-400 Mg Tablet]) 1 tab PO HS [facility] Last Admin: 11/11/16 21:46 Dose: 1 tab Piperacillin Sod/Tazobactam (Sod 3.375 gm/ Sodium Chloride) 100 mls @ 100 mls/ hr IVPB Q6 [facility] Last Admin: 11/12/16 10:34 Dose: 100 mls/hr Labetalol HCl (Trandate) 10 mg IVP Q4 PRN PRN Reason: Other Losartan Potassium (Cozaar) 50 mg PO DAILY [facility] Last Admin: 11/09/16 14:27 Dose: Not Given Meclizine HCl (Antivert) 25 mg PO Q8@0200,1000,1800 [facility] Last Admin: 11/12/16 10:35 Dose: 25 mg Metoprolol Tartrate (Lopressor) 12.5 mg PO Q12 [facility] Last Admin: 11/12/16 13:26 Dose: 12.5 mg - Labs Labs: 11/12/16 05:30 11/12/16 05:30 PT 11.1 Seconds (9.8-13.1) 11/11/16 06:00 INR 1.0 (0.9-1.2) 11/11/16 06:00 APTT 32.5 Seconds (25.6-37.1) 11/11/16 06:00 - Neurological Exam Neurological Exam: Abnormal Gait, Awake, CN II-XII Intact, Oriented x3, Reflexes Normal Neuro motor strength exam: Left Upper Extremity: 5, Right Upper Extremity: 5, Left Lower Extremity: 5, Right Lower Extremity: 5 - Psychiatric Exam Psychiatric exam: Normal Affect, Normal Mood - Skin Skin Exam: Dry, Intact, Normal Color, Warm Assessment and Plan (1) Cerebellar stroke Assessment & Plan: Plan to obtain diagnostic cerebal angiogram tomorrow. Will discuss obtaining a NISHA as well. Will consider anticoagulation based on the results of the hematology work-up and angiographic findings. Status: Acute
--- NOTE | 2016-11-12 16:39 | CP.PCM.PN ---
Subjective - Date & Time of Evaluation Date of Evaluation: 11/12/16 Time of Evaluation: 13:00 - Subjective Subjective: pt states he feels less dizzy. no cp, sob, or palp. No n/v/d/c. no new neuro sx's. Objective - Vital Signs/Intake and Output Vital Signs (last 24 hours): Temp Pulse Resp BP Pulse Ox 98.1 F 63 18 146/85 93 L 11/12/16 15:37 11/12/16 15:37 11/12/16 15:37 11/12/16 15:37 11/12/16 15:37 - Medications Medications: Current Medications Acetaminophen (Tylenol 325mg Tab) 650 mg PO Q6 PRN PRN Reason: Headache Last Admin: 11/12/16 10:45 Dose: 650 mg Acetaminophen/Butalbital/Caffeine (Fioricet) 1 tab PO Q4 PRN PRN Reason: Pain, moderate (4-7) Last Admin: 11/10/16 17:42 Dose: 1 tab Amlodipine Besylate (Norvasc) 5 mg PO Q12 [facility] Aspirin (Aspirin Chewable) 81 mg PO DAILY [facility] Last Admin: 11/12/16 08:44 Dose: 81 mg Atorvastatin Calcium (Lipitor) 20 mg PO DAILY [facility] Last Admin: 11/12/16 10:37 Dose: 20 mg Clopidogrel Bisulfate (Plavix) 75 mg PO DAILY [facility] Last Admin: 11/12/16 13:29 Dose: 75 mg Escitalopram Oxalate (Lexapro) 10 mg PO DAILY [facility] Last Admin: 11/12/16 08:45 Dose: 10 mg Gabapentin (Neurontin) 300 mg PO TID [facility] Last Admin: 11/12/16 13:28 Dose: 300 mg Home Med (Ledipasvir/Sofosbuvir [Harvoni 90-400 Mg Tablet]) 1 tab PO HS [facility] Last Admin: 11/11/16 21:46 Dose: 1 tab Piperacillin Sod/Tazobactam (Sod 3.375 gm/ Sodium Chloride) 100 mls @ 100 mls/ hr IVPB Q6 [facility] Last Admin: 11/12/16 16:26 Dose: 100 mls/hr Labetalol HCl (Trandate) 10 mg IVP Q4 PRN PRN Reason: Other Losartan Potassium (Cozaar) 50 mg PO DAILY [facility] Last Admin: 11/09/16 14:27 Dose: Not Given Meclizine HCl (Antivert) 25 mg PO Q8@0200,1000,1800 [facility] Last Admin: 11/12/16 10:35 Dose: 25 mg Metoprolol Tartrate (Lopressor) 12.5 mg PO Q12 [facility] Last Admin: 11/12/16 13:26 Dose: 12.5 mg - Labs Labs: 11/12/16 05:30 11/12/16 05:30 PT 11.1 Seconds (9.8-13.1) 11/11/16 06:00 INR 1.0 (0.9-1.2) 11/11/16 06:00 APTT 32.5 Seconds (25.6-37.1) 11/11/16 06:00 - Constitutional Appears: Well, Non-toxic - Head Exam Head Exam: ATRAUMATIC, NORMAL INSPECTION, NORMOCEPHALIC - Eye Exam Eye Exam: EOMI, Normal appearance, PERRL Pupil Exam: NORMAL ACCOMODATION, PERRL - ENT Exam ENT Exam: Mucous Membranes Moist, Normal Exam - Neck Exam Neck Exam: Full ROM, Normal Inspection. absent: Lymphadenopathy - Respiratory Exam Respiratory Exam: Clear to Ausculation Bilateral, NORMAL BREATHING PATTERN - Cardiovascular Exam Cardiovascular Exam: REGULAR RHYTHM, +S1, +S2, Murmur - GI/Abdominal Exam GI & Abdominal Exam: Soft, Normal Bowel Sounds. absent: Tenderness - Extremities Exam Extremities Exam: Full ROM, Normal Capillary Refill, Normal Inspection. absent : Joint Swelling, Pedal Edema - Back Exam Back Exam: NORMAL INSPECTION - Neurological Exam Neurological Exam: Alert, Awake, CN II-XII Intact, Oriented x3 - Psychiatric Exam Psychiatric exam: Normal Affect, Normal Mood - Skin Skin Exam: Dry, Intact, Normal Color, Warm Assessment and Plan (1) Vertigo Status: Acute (2) S/P CABG x 4 Status: Acute (3) CAD (coronary artery disease) Status: Chronic (4) LBBB (left bundle branch block) Status: Acute (5) Pre-syncope Status: Acute (6) HTN (hypertension) Status: Chronic (7) CVA (cerebral vascular accident) Status: Acute (8) Cerebellar stroke Status: Acute - Assessment and Plan (Free Text) Plan: PT AND FAMILY ARE REQUESTING NISHA BE DONE BEFORE TRANSFER TO [facility]. WILL MAKE PT NPO IF TIME SLOT AVAILABLE WILL DO NISHA TOMORROW AM. RISKS BENEFITS AND ALTERNATIVES OF NISHA EXPLAINED TO PT REPLEAT LYTES CONTINUE TELE ( OF NOW NO ARRYTHMIAS) DUAL ANTIPLTS. 55 MIN TOTAL CARE TIME
[2016-11-12] MEDS: SOFOSBUVIR PO SCH (23:58)
[2016-11-12] MEDS: LEDIPASVIR PO SCH (23:58)
[2016-11-13] MEDS: Piperacillin/Tazobact 3.375 GM in Sodium Chloride 0.9% 100 ML IVPB SCH (04:22)
[2016-11-13 05:04] LABS: HEMOGLOBIN 16.8 g/dL (12.0-18.0); MEAN CELL VOLUME 90.3 fl (80.0-94.0); MEAN CORPUSCULAR HEMOGLOBIN 29.7 pg (27.0-31.0); MEAN CORPUSCULAR HGB CONC 32.9 g/dL (33.0-37.0); RBC 5.65 Mil/uL (4.40-5.90); RED CELL DISTRIBUTION WIDTH 14.5 % (11.5-14.5); WHITE BLOOD COUNT 15.8 K/uL (4.8-10.8)
[2016-11-13 05:24] LABS: ALB/GLOB RATIO 1.1 (1.0-2.1); ALBUMIN 3.9 g/dL (3.5-5.0); CALCIUM 9.1 mg/dL (8.4-10.2)
[2016-11-13 05:37] LABS: PROTHROMBIN TIME 11.8 Seconds (9.8-13.1)
[2016-11-13 05:38] LABS: PARTIAL THROMBOPLASTIN TIME 48.4 Seconds (25.6-37.1)
[2016-11-13 08:05] VITALS: TEMP 97.2
[2016-11-13] MEDS: Potassium CL 10 MEQ/50 ML 50 ML IVPB SCH ×3 (08:29→10:39)
--- NOTE | 2016-11-13 08:57 | PN ---
DATE: 11/13/2016 The patient is seen and examined. Interim events noted. Consults noted and appreciated. Cardiology and neurology followup and intervention noted and appreciated. The patient remains in progressive c are unit on telemetry monitoring. The patient is tentatively scheduled for [facility] and also transferred to [place] for neuroendovascular evaluation. The patient feels okay. No complaint of chest pain, shortness of breath, or dizziness. PHYSICAL EXAMINATION: GENERAL: The patient is in no acute distress. VITAL SIGNS: Stable. HEART: S1 and S2 normal regular. LUNGS: Good bilateral air exchange. ABDOMEN: Soft, nontender. EXTREMITIES: No edema, no calf swelling, no tenderness, no acute ischemia. CENTRAL NERVOUS SYSTEM: Essentially unchanged. DIAGNOSTIC DATA: Available diagnostic data reviewed. Telemetry monitoring does not reveal significa nt arrhythmias. Overall, the patient's general medical condition is stable. As mentioned earlier, the patient is marissa eduled for [facility] and possible transfer to [facility] for endovascular evaluation and managemen t. Case and plan discussed with the patient and the patient's family. Tommy Salgado MD cc: [id number] TT: 11/13/2016 08:56:27 Confirmation # [id number] Dictation # [id number] tammi
[2016-11-13 11:07] VITALS: BP 183/103; PULSE 62
[2016-11-15 05:53] VITALS: O2SAT 98
[2016-11-15 19:20] LABS: JAK2 V617F NOT DETECTED
== END 2016-11-13 14:34 | disposition short-term general hospital (02) | DRG 66 ==
LOC: H.ER 06:40 → H.ERHOLD 11:24 → H.TEL 15:16
PROVIDERS: ADMIT Internal Medicine; ATTEND Internal Medicine
DX: I63.211 Cerebral infarction due to unspecified occlusion or stenosis of right vertebral artery (principal); G62.9 Polyneuropathy, unspecified; I10 Essential (primary) hypertension; B19.20 Unspecified viral hepatitis C without hepatic coma; D72.829 Elevated white blood cell count, unspecified; E78.5 Hyperlipidemia, unspecified; I25.10 Atherosclerotic heart disease of native coronary artery without angina pectoris; Z95.1 Presence of aortocoronary bypass graft; R73.03 Prediabetes; I73.9 Peripheral vascular disease, unspecified; F32.9 Major depressive disorder, single episode, unspecified; E04.1 Nontoxic single thyroid nodule; I44.7 Left bundle-branch block, unspecified; Z87.891 Personal history of nicotine dependence; E87.6 Hypokalemia